=== PATIENT | male | born 1955 | race Caucasian/White ===

== ENCOUNTER 2016-06-21 15:06 | Inpatient (IN) | payer OTHER ==
[~2016-06-21] VITALS: Ht 175.3 cm; Wt 69.4 kg
[~2016-06-21 15:06] MED LIST: ANTIBIOTIC O500 U/GM TP; CIPROFLOXACIN500 M1 PO; COLACE100 M1 PO; DEPAKOTE SPRIN125 MG PO; DIVALPROEX SOD250 M1 PO; DIVALPROEX SOD500 M1 PO; KENALOG 0.1%15 GM TP; KLONOPIN1 MG PO; LAMICTAL200 MG PO; LEVOTHYROXINE0.05 M3 PO; MAPAP325 MG PO; MULTIVITAMIN PO; NEURONTIN400 MG PO; POLYETHYLENE GL; SEROQUEL200 MG PO; SEROQUEL400 MG PO; TRAZADONE HYDR100 MG PO; [UNRECOGNIZED DRUG - CODE] PO
[2016-06-21 15:35] VITALS: BP 117/74
--- NOTE | 2016-06-21 15:40 | NUR ---
ER MD DR. GRAY NOTIFIED OF PT TEMPERATURE/ BLOOD SUGAR; WARM BLANKETS PROVIDED FOR COMFORT; WILL CONTINUE TO MONITOR.
--- NOTE | 2016-06-21 16:54 | NUR ---
PT BIB CAREGIVERS FROM [facility] C/O COUGH X 5 DAYS. PT IS MENTALLY CHALLENGE. CAREGIVER DENIES N/V/D; SKIN IS WARM/DRY; HAS MULTIPLE BRUISES ON LEFT PLUNKETT, BLANCHABLE REDNESS ON RIGHT HIP,RIGHT BACK AND LEFT AND RIGHT BUTTOCKS.PT IS HYPOTHERMIC WITH TEMP OF 91 F.HR EVEN AND REGULAR;CAREGIVER DENIES ANY FEVER, CP, SOB, AT THIS TIME;PROVIDED MULTIPLE BLANKET.PATIENT POSITIONED FOR COMFORT; HOB ELEVATED; BEDRAILS UP X2; BED DOWN. ER MD MADE AWARE OF PT STATUS.
[2016-06-21] MEDS ORDERED: NACL 0.9% 1,000 ML IV ONE (17:10)
--- NOTE | 2016-06-21 17:38 | NUR ---
TALKED TO DR GRAY. OKAY TO DO IN AND OUT FOR URINE COLLECTION.
[2016-06-21] MEDS ORDERED: VANCOMYCIN 1,000 MG in DEXTROSE 5% 250 ML IV ONE (17:40)
[2016-06-21] MEDS ORDERED: LEVOFLOXACIN 750 MG/D5W PREMIX 150 ML IV ONE (17:40)
[2016-06-21] MEDS ORDERED: PIPERACILLIN/TAZOBACTAM 3.375 GM in DEXTROSE 5% 50 ML IV ONE (17:40)
--- NOTE | 2016-06-21 17:43 | NUR ---
IN AND OUT DONE.PT TOLERATED WELL. NO BLOOD NOTED.
[2016-06-21] MEDS ORDERED: PIPERACILLIN/TAZOBACTAM 3.375 GM VIAL IV ONE (17:54)
--- NOTE | 2016-06-21 18:39 | NUR ---
PT AA.NO ACUTE DISTRESS NOTED AT THIS TIME.WILL CONTINUE TO MONITOR PT
[2016-06-21] MEDS ORDERED: NACL 0.9% 1,000 ML IV SCH (18:53)
[2016-06-21] MEDS ORDERED: ONDANSETRON 4 MG/2 ML VIAL IVP PRN (18:55)
[2016-06-21] MEDS ORDERED: LORazepam 2 MG/ML VIAL IVP PRN (18:55)
[2016-06-21] MEDS ORDERED: ALBUTEROL 0.083% 2.5 MG/3 ML NEBU IH PRN (18:55)
--- NOTE | 2016-06-21 19:18 | NUR ---
CALL PLACED TO TELE TO GIVE REPORT WILL CALL US BACK
--- NOTE | 2016-06-21 19:27 | NUR ---
REPORT GIVEN TO LINCOLN WILCOX
--- NOTE | 2016-06-21 19:40 | NUR ---
PT ADMITTED TO TELE WITH ADMIT DX PNA AND HYPOTHERMIA PT VITAL SIGNS CURRENTLY STABLE TEMP IS NORMAL PT WAS GIVEN A WARM BLANKET AND WAS TRANSFERRED TO A WOUND CARE BED MATTRESS.PT WILL BE TURNED AND REPOSITIONED TO PREVENT PRESSURE SORES TO RT AND LT HIP AND ALSO BUTTOCKS PT HAS SOME DRY SCABS TO BOTH LOWER EXTREMITIES AND FEET NOTED.FALL PRECAUTIONS AND SEIZURE PREC IMPLEMENTED.EDUCATED ON HOW TO USE THE CALL LIGHT PT IS MENTALLY CHALLENGED AND DOESN'T COMPREHEND.PATIENT CAME WITHOUT FAMILY OR CAREGIVER TO THE FLOOR SO THE ONLY MEDICAL HISTORY OBTAINED IS THAT THRU THE MEDICAL RECORD AT THIS TIME WILL TRY TO CONTACT THE CAREGIVER LEE WILL LEAVE A MESSAGE IN CASE HE DOESN'T ANSWER.ORDERS WILL BE REVIEWED AND CARRIED OUT.
--- NOTE | 2016-06-21 19:45 | NUR ---
BERNIE CATHETER WAS INSERTED AND PATIENT TOLERATED PROCEDURE WELL,THEN CONNECTED TO URINE BAG WILL MONITOR URINE OUTPUT.
[2016-06-21 20:00] VITALS: BP 118/85
[2016-06-21] MEDS: PIPERACILLIN/TAZOBACTAM 3.375 GM in DEXTROSE 5% 50 ML IV SCH (21:00)
[2016-06-21] MEDS ORDERED: VANCOMYCIN 1,000 MG VIAL ONE (21:30)
--- NOTE | 2016-06-21 22:15 | NUR ---
PT TURNED AND REPOSITIONED OFFLOADING DONE, BY BOTH KARLA VENCES AND KARLA BARNETT.
--- NOTE | 2016-06-21 22:47 | NUR ---
Patient's Plan of Care was discussed and reviewed with STRUCTURAL WORKER: JERI MOSES
--- NOTE | 2016-06-21 22:48 | NUR ---
LINCOLN ALEGRIA ATTEMPTED TO CALL LEE LEAL HIM EARLIER TO OBTAIN MEDICAL INFORMATION FOR THE PATIENT AND SHE LEFT A MESSAGE EARLIER.I CALLED LEE AGAIN FOR A SECOND TIME TO TRY TO OBTAIN MEDICAL INFORMATION ON THE PATIENT BUT STILL THERES IS NO ANSWER.SO I LEFT A MESSAGE IN THE ANSWERING MACHINE.
--- NOTE | 2016-06-22 00:38 | NUR ---
PT AWAKE ON AND OFF A BIT RESTLES IN BED RESTING IN WOUND CARE BED MATTRESS,CONTINUES TO BE TURNED AND REPOSITIONED OFFLOADING DONE TO PREVENT PRESSURE TO RT AND LT HIP AND ALSO BUTTOCKS.PT CONTINUES TO HAVE THE CONDOM CATHETER IN PLACE,NO PAIN OR DISCOMFORT NOTED NO SEIZURE ACTIVITY NOTED SIDERAILS CONTINUE TO BE PADDED.CALL LIGHT WITHIN REACH WILL CONTINUE TO MONITOR.
[2016-06-22 00:57] VITALS: BP 115/85
--- NOTE | 2016-06-22 00:57 | NUR ---
EXTRA BLANKETS GIVEN TO THE PATIENT NEEDS MET. BED ALARM ON.
--- NOTE | 2016-06-22 01:41 | NUR ---
UNABLE TO COLLECT SPUTUM C/S PT ISN'T COUGHING OR PRODUCING PHLEGM AT THIS TIME.
--- NOTE | 2016-06-22 02:37 | NUR ---
PT IS SLEEPING PT WAS TURNED AND REPOSITIONED BY KARLA VENCES.BED ALARM ON WILL CONTINUE TO MONITOR.
[2016-06-22] MEDS ORDERED: PIPERACILLIN/TAZOBACTAM 3.375 GM VIAL IV ONE (03:52)
[2016-06-22] MEDS: PIPERACILLIN/TAZOBACTAM 3.375 GM in DEXTROSE 5% 50 ML IV SCH (04:05)
[2016-06-22 04:40] VITALS: BP 118/73
--- NOTE | 2016-06-22 04:45 | NUR ---
PT STABLE TURNED AND REPOSITIONED FOR COMFORT BY KARLA VENCES AND KARLA BARNETT.
--- NOTE | 2016-06-22 06:15 | NUR ---
PT AWAKE STABLE NO RESP DISTRESS NO SEIZURE ACTIVITY NOTED.
--- NOTE | 2016-06-22 07:26 | NUR ---
PT IS CURRETLY AWAKE HAVING A CHEST XRAY REPORT ENDORSED TO LINCOLN CNAALES SHE WILL RESUME CARE OF THE PATIENT.
--- NOTE | 2016-06-22 07:26 | NUR ---
RECEIVED REPORT FROM NIGHT NURSE, PT IS AAOX2, IV TO RIGHT AC 20G SALINE LOCK PATENT AND INTACT, O2 3L VIA NC , NO S/S OF RESPIRATORY DISTRESS OR COUGH NOTED,SKIN INTACT, BLE SCARS, REORIENTED PT TO ENVIRONMENT, REVIEWED PLAN OF CARE WITH PT, REINFORCEMENT NEEDED , INITIAL ASSESSMENT COMPLETED, ALL SAFETY/FALL PRECAUTIONS MET, ALL NEEDS MET, CALL LIGHT WITHIN REACH, WILL CONTINUE TO MONITOR.
--- NOTE | 2016-06-22 07:26 | NUR ---
ENDORSED TO LINCOLN CANALES TO FOLLOW UP WITH CASHIER ASSOCIATE OR CAREGIVER ON THE PNA AND FLU VACCINES.
[2016-06-22 08:00] VITALS: BP 119/79
--- NOTE | 2016-06-22 08:14 | NUR ---
PATIENT HAS BEEN SCREENED AND CATEGORIZED HIGH NUTRITION RISK. PATIENT WILL BE SEEN WITHIN 1-2 DAYS OF ADMISSION. 06/22/16-06/23/[address]
[2016-06-22] MEDS: ENOXAPARIN 30 MG/0.3 ML SYR SUBQ SCH (09:34)
--- NOTE | 2016-06-22 09:34 | NUR ---
DUE MEDICATION GIVEN, PT TOLERATED WELL. ALL NEEDS MET, CALL LIGHT WITHIN REACH, WILL CONTINUE TO MONITOR.
--- NOTE | 2016-06-22 10:35 | NUR ---
CHECKED IN ON PT, PT CURRENTLY SLEEPING, NO S/S OF RESPIRATORY DISTRESS NOTE, CALL LIGHT WITHIN REACH, WILL CONTINUE TO MONITOR.
[2016-06-22 12:00] VITALS: BP 122/70
[2016-06-22] MEDS: PIPER/TAZO 3.375GM/D5W PREMIX 50 ML IV SCH ×2 (13:04→21:07)
--- NOTE | 2016-06-22 13:06 | NUR ---
DUE MEDICATIONS GIVEN, PT CURRENTLY RESTING IN BED. NO S/S OF RESPIRATORY DISTRESS OR DISCOMFORT NOTED, CALL LIGHT WITHIN REACH. WILL CONTINUE TO MONITOR.
--- NOTE | 2016-06-22 13:09 | NUR ---
06/22/15 RD INITIAL ASSESSMENT COMPLETED PLEASE REFER TO NUTRITION ASSESSMENT UNDER CARE ACTIVITY FOR ESTIMATED NUTRITIONAL NEEDS. RD RECOMMENDATIONS: 1. CONTINUE REGULAR DIET MEDICALLY APPROPRIATE. --NOTE PT WITH INCREASED KCAL AND PROTEIN NEEDS D/T DX OF SEPSIS. 2. RD WILL F/U 3-5 DAYS; MODERATE RISK. ARLENE GOODRICH, RD
[2016-06-22] MEDS ORDERED: VANCOMYCIN PER PHARMACY MC PRN (13:55)
--- NOTE | 2016-06-22 14:10 | NUR ---
CHECKED IN ON PT, PT CURRENTLY AWAKE, CAREGIVER AT BEDSIDE. REVIEWED PLAN OF CARE WITH CAREGIVER HE VERBALIZED UNDERSTANDING.
[2016-06-22] MEDS: VANCOMYCIN 1,250 MG in DEXTROSE 5% 250 ML IV SCH (15:30)
--- NOTE | 2016-06-22 15:35 | NUR ---
DUE MEDICATION GIVEN. PT CURRENTLY AWAKE, NO S/S OF PAIN OR RESPIRATORY DISTRESS NOTED, CALL LIGHT WITHIN REACH, WILL CONTINUE TO MONITOR.
[2016-06-22 16:00] VITALS: BP 127/68
[2016-06-22] MEDS: GABAPENTIN 100 MG CAP PO SCH (16:49)
[2016-06-22] MEDS: DIVALPROEX SPRINKLES 125 MG CAPDR PO SCH (16:53)
--- NOTE | 2016-06-22 16:53 | NUR ---
DUE MEDICATIONS GIVEN WITH APPLE SAUCE. PT TOLERATED WELL. WILL CONTINUE TO MONITOR.
--- NOTE | 2016-06-22 17:28 | NUR ---
CHECKED IN ON PT, PT CURRENTLY SLEEPING. NO S/S OF RESPIRATORY DISTRESS NOTED, ALL NEEDS MET. CALL LIGHT WITHIN REACH. WILL CONTINUE TO MONITOR.
[2016-06-22] MEDS ORDERED: INFLUENZA VIRUS VACCINE QUAD 0.5 ML SYR IMVAC SCH (18:50)
--- NOTE | 2016-06-22 19:10 | NUR ---
ENDORSED PLAN OF CARE TO NIGHT NURSE, PT IN STABLE CONDITION.
--- NOTE | 2016-06-22 19:15 | NUR ---
RECEIVED REPORT FROM DAY NURSEMARIO. PATIENT RESTING IN BED. NO RESPIRATORY DISTRESS, SOB, OR DISCOMFORT. INITIAL ASSESSMENT AND BODY CHECK DONE. PATIENT IS AOX1, HX MR, REDNESS NOTED TO SACRAL AREA AND BL HIPS. IV ACCESS TO LEFT FOREARM 22G, PATENT. PATIENT ON O2 3L NC, TOLERATING WELL. DISCUSSED PLAN OF CARE, MEDICATION REGIMENT, AND PAIN MANAGEMENT WITH PATIENT. PLACED PATIENT ON SAFETY/FALL/PRESSURE ULCER/SEIZURE PRECAUTIONS. CALL LIGHT LEFT WITHIN REACH, WILL CONTINUE TO MONITOR.
[2016-06-22 20:00] VITALS: BP 123/77
[2016-06-22] MEDS: DOCUSATE SODIUM 100 MG GELCAP PO SCH (21:00)
[2016-06-22] MEDS ORDERED: BACITRACIN OINT 15000 UNITS/30 GM TUBE TP SCH (21:00)
[2016-06-22] MEDS: MULTIVITAMIN/MINERALS 1 TAB PO SCH (21:04)
[2016-06-22] MEDS: QUEtiapine FUMARATE 100 MG TAB PO SCH (21:05)
--- NOTE | 2016-06-22 21:05 | NUR ---
PATIENT'S MEDICATION: COLACE HELD AT THIS TIME. PATIENT HAS POSSIBLY DYSPHAGIA AND AWAITING SWALLOW EVALUATION. ABLE TO CRUSH MEDS AND MIX WITH APPLESAUCE. COLACE IS LIQUID CAPSULE AND UNABLE TO CRUSH.
--- NOTE | 2016-06-22 22:05 | NUR ---
PATIENT IN BED, SLEEPING. NO RESPIRATORY DISTRESS, SOB, OR DISCOMFORT. CALL LIGHT LEFT WITHIN REACH, WILL CONTINUE TO MONITOR.
[2016-06-23] VITALS: BP 116/65
--- NOTE | 2016-06-23 00:49 | NUR ---
PATIENT ASLEEP. NO RESPIRATORY DISTRESS, SOB, OR DISCOMFORT. CALL LIGHT LEFT WITHIN REACH, WILL CONTINUE TO MONITOR.
[2016-06-23] MEDS ORDERED: HYDRAGUARD CREAM TP SCH ×2 (01:00→13:00)
--- NOTE | 2016-06-23 03:11 | NUR ---
PATIENT SLEEPING. NO RESPIRATORY DISTRESS, SOB, OR DISCOMFORT. CALL LIGHT LEFT WITHIN REACH, WILL CONTINUE TO MONITOR.
[2016-06-23 04:00] VITALS: BP 120/72
[2016-06-23] MEDS: VANCOMYCIN 1,250 MG in DEXTROSE 5% 250 ML IV SCH ×2 (04:17→15:35)
[2016-06-23] MEDS: PIPER/TAZO 3.375GM/D5W PREMIX 50 ML IV SCH ×3 (05:44→20:57)
--- NOTE | 2016-06-23 06:03 | NUR ---
PATIENT IN BED, ASLEEP. NO RESPIRATORY DISTRESS, SOB, OR DISCOMFORT. CALL LIGHT LEFT WITHIN REACH, WILL CONTINUE TO MONITOR.
[2016-06-23] MEDS: LEVOTHYROXINE 0.05 MG TAB PO SCH (06:34)
--- NOTE | 2016-06-23 07:18 | NUR ---
REPORT GIVEN TO DAY NURSE, SUNG. PATIENT RESTING IN BED, STABLE. NO RESPIRATORY DISTRESS, SOB, OR DISCOMFORT. ALL NEEDS ATTENDED TO DURING SHIFT, CALL LIGHT LEFT WITHIN REACH.
--- NOTE | 2016-06-23 07:19 | NUR ---
RECEIVED REPORT FROM WASHING MACHINE LOADER RN. PT IS SLEEPING, A/O X 1. LEFT WRIST TKO, INTACT AND PATENT. BEDBOUND. BILATERAL HIP AND SACRAL REDNESS, PT ON WOUND BED. O2 3L NC. NO S/S OF ACUTE CARDIAC/RESPIRATORY DISTRESS. CONDOM CATHETER DRAINING TO GRAVITY. SAFETY MEASURES IN PLACE, SEIZURE PRECAUTIONS IN PLACE, CALL LIGHT WITHIN REACH. WILL CONTINUE PLAN OF CARE AND CONTINUE TO MONITOR.
[2016-06-23 08:00] VITALS: BP 120/89
[2016-06-23] MEDS: DIVALPROEX SPRINKLES 125 MG CAPDR PO SCH ×4 (09:00→16:36)
[2016-06-23] MEDS: DOCUSATE SODIUM 100 MG GELCAP PO SCH (09:07)
[2016-06-23] MEDS: POLYETHYLENE GLYCOL 17 GM/PKT PO SCH (09:07)
[2016-06-23] MEDS: MULTIVITAMIN/MINERALS 1 TAB PO SCH (09:07)
[2016-06-23] MEDS: ENOXAPARIN 30 MG/0.3 ML SYR SUBQ SCH (09:07)
[2016-06-23] MEDS: clonazePAM 0.5 MG TAB PO SCH (09:10)
[2016-06-23] MEDS: GABAPENTIN 100 MG CAP PO SCH ×2 (09:11→16:36)
--- NOTE | 2016-06-23 09:30 | NUR ---
PT AWAKE. PT REFUSED CRUSHED AM MEDS WITH APPLESAUCE. NO S/S OF ACUTE DISTRESS OR DISCOMFORT. CALL LIGHT WITHIN REACH. WILL CONTINUE TO MONITOR.
[2016-06-23 12:00] VITALS: BP 104/59
--- NOTE | 2016-06-23 13:00 | NUR ---
PT IS SLEEPING. NO S/S OF ACUTE DISTRESS OR DISCOMFORT. CALL LIGHT WITHIN REACH. REPOSITIONED PT. OFF LOAD BILATERAL HIPS, HEALS, AND ANKLES. PT HAS A NON-PRODUCTIVE COUGH, UNABLE TO COLLECT SPUTUM AT THIS TIME. CALL LIGHT WITHIN REACH, WILL CONTINUE TO MONITOR.
[2016-06-23] MEDS: HYDRAGUARD CREAM TP SCH (13:03)
--- NOTE | 2016-06-23 15:09 | NUR ---
PT IS SLEEPING. NO S/S OF ACUTE DISTRESS/DISCOMFORT. CALL LIGHT WITHIN REACH. SEIZURES PRECAUTIONS IN PLACE. PT REPOSITIONED. WILL CONTINUE TO MONITOR.
[2016-06-23 16:00] VITALS: BP 123/73
[2016-06-23] MEDS ORDERED: INFLUENZA VIRUS VACCINE QUAD 0.5 ML SYR IMVAC PRN (18:50)
--- NOTE | 2016-06-23 19:07 | NUR ---
ENDORSED REPORT TO CHEMICAL CHECKER RN. PT IS SLEEPING. NO S/S OF ACUTE DISTRESS OR DISCOMFORT. PT IN STABLE CONDITION.
--- NOTE | 2016-06-23 19:23 | NUR ---
RECEIVED REPORT FROM DAYSHIFT RN FOR CONTINUITY OF CARE. PATIENT IS A&OX1. SHIFT ASSESSMENT DONE, VS TAKEN. PATIENT IS STABLE AT THIS TIME. NO S/S OF RESPIRATORY DISTRESS NOTED ON 3L O2 VIA NC. INTERMITTENT COUGH NOTED. NO S/S OF PAIN NOTED, RESTING COMFORTABLY. IV TO LT WRIST 22 GAUGE PATENT AND FLUSHED. CONDOM CATHETER IN PLACE. PT HAS REDNESS TO BILATERAL SIDE OF HIPS, SACRAL REDNESS, AND REDNESS TO BILATERAL ANKLES. SAFETY/ FALL/ SEIZURE PRECAUTIONS ENFORCED. PATIENT HAS MITTENS IN PLACE TO PREVENT PULLING OUT IV. WILL CONTINUE TO MONITOR.
[2016-06-23 20:00] VITALS: BP 114/68
--- NOTE | 2016-06-23 20:57 | NUR ---
DUE IVPB MEDICATIONS ADMINISTERED. CRUSHED DUE MEDICATIONS, PT REFUSED SHOOK HEAD "NO" WHEN ASKED IF HE WANTED TO TAKE MEDICATIONS. WILL CONTINUE TO MONITOR.
[2016-06-23] MEDS: QUEtiapine FUMARATE 100 MG TAB PO SCH ×2 (21:00→21:07)
[2016-06-23] MEDS ORDERED: QUEtiapine FUMARATE 100 MG TAB ONE (21:07)
--- NOTE | 2016-06-23 22:36 | NUR ---
PT IS AWAKE, NO S/S OF DISTRESS OR DISCOMFORT NOTED. REPOSITIONED AND CLEANED PT UP. WILL CONTINUE TO MONITOR.
[2016-06-24] VITALS: BP 104/61
--- NOTE | 2016-06-24 00:05 | NUR ---
VS TAKEN, STABLE. PT IS AWAKE. NO S/S OF RESPIRATORY DISTRESS NOTED ON 3L NC.
[2016-06-24] MEDS: HYDRAGUARD CREAM TP SCH ×2 (01:00→13:42)
--- NOTE | 2016-06-24 02:02 | NUR ---
PT IS AWAKE, REPLIED "YES" WHEN ASKED IF HE WAS OK. NO S/S OF DISTRESS OR DISCOMFORT NOTED.
[2016-06-24] MEDS: VANCOMYCIN 1,250 MG in DEXTROSE 5% 250 ML IV SCH ×2 (03:41→15:49)
[2016-06-24 04:00] VITALS: BP 106/58
--- NOTE | 2016-06-24 04:20 | NUR ---
VS TAKEN, STABLE. REPOSITIONED PATIENT AND PROVIDED AM CARE. WILL CONTINUE TO MONITOR.
[2016-06-24] MEDS: PIPER/TAZO 3.375GM/D5W PREMIX 50 ML IV SCH ×2 (04:21→13:43)
[2016-06-24] MEDS: LEVOTHYROXINE 0.05 MG TAB PO SCH (06:25)
--- NOTE | 2016-06-24 06:25 | NUR ---
DUE MEDICATIONS ADMINISTERED, PT TOLERATED WELL.
--- NOTE | 2016-06-24 07:20 | NUR ---
ENDORSED PATIENT TO RYANNE RN FOR CONTINUITY OF CARE, PATIENT IS STABLE.
--- NOTE | 2016-06-24 07:30 | NUR ---
RECEIVED ON BED AAOX1 ONLY, HX OF MENTAL DELAY. NO SOB NOTED. NO SIGNS OF PAIN AT THIS TIME. IV TO LT WRIST PATENT AND INTACT. CHEST, DIMINISHED AIR ENTRY TO THE BASES. ON 02 AT 3LPM VIA NASAL CANNULA. ABDOMEN SOFT, BOWEL SOUNDS PRESENT. REDNESS TO BILATERAL HIPS AND SACRAL AREA NOTED. WILL REPOSITION PT EVERY 2 HRS. INSTRUCTED PT TO CALL FOR ASSISTANCE, CALL LIGHT WITHIN REACH, BED ALARM ON AND ON LOW POSITION. PT VERBALIZED PARTIAL UNDERSTANDING.
[2016-06-24 08:00] VITALS: BP 101/64
[2016-06-24] MEDS: MULTIVITAMIN/MINERALS 1 TAB PO SCH (09:00)
[2016-06-24] MEDS: DOCUSATE SODIUM 100 MG GELCAP PO SCH (09:00)
[2016-06-24] MEDS: GABAPENTIN 100 MG CAP PO SCH ×3 (09:00→15:50)
[2016-06-24] MEDS: ENOXAPARIN 30 MG/0.3 ML SYR SUBQ SCH (09:26)
--- NOTE | 2016-06-24 09:58 | NUR ---
WOUND CARE EVALUATION NOTES: REASON FOR EVALUATION: SACRAL REDNESS COMPLETE SKIN ASSESSMENT DONE ON THIS 60 Y/O MALE PATIENT FROM [facility] TO [facility], WITH INITIAL DIAGNOSIS OF PNEUMONIA AND HYPOTHERMIA. PAST MEDICAL HISTORY INCLUDE SEIZURE AND MENTAL RETARDATION. ALL ABOVE INFORMATION WAS OBTAINED FROM THE ADMISSION H&P. LABS ARE WBC 5.8, H/H 12.3/36.8, GLUCOSE 88, ALBUMIN 2.3, PT/INR 10.4/1.1 AND PTT 34.4. CURRENT MEDS INCLUDE KLONOPIN, SEROQUEL, MULTIVITAMINS, VANCOMYCIN, ZOSYN, ENOXAPARIN AND ATIVAN. PATIENT IS AWAKE, NO VERBAL, ABLE TO ANSWER YES BY NODDING HIS HEAD. ABLE TO FOLLOW SIMPLE COMMAND. ON 02 PER NASAL CANNULA. ON BILATERAL MITTENS. SKIN WARM TO TOUCH WNL, THICKENED YELLOW TOENAILS, NO EDEMA, FEW HAIR GROWTH AND +3 BILATERAL PEDAL PULSES. URINE AND BOWEL INCONTINENT. ABLE TO TURN SELF WITH ASSISTANCE. INITIAL PLAN OF CARE AND PRESSURE PREVENTIVE MEASURES DISCUSSED, UNABLE TO VERBALIZE UNDERSTANDING. WILL REINFORCE TEACHING. INTEGUMENTARY: SACRALCOCCYX TO PERIAREA - RED AND MOIST DUE TO URINE AND BOWEL INCONTINENCE LEFT LATERAL FOOT - MULTIPLE BLANCHABLE REDNESS RIGHT LATERAL FOOT - MULTIPLE BLANCHABLE REDNESS. BLE - MULTIPLE ABRASIONS - BROWN SCABS RIGHT HIP - WITH SCARRING LEFT HIP - ST II OVER SCARRING - 100% RICO SCAB LEFT MEDIAL METATARSAL HEAD - ABRASION - 100% BROWN RED SCAB RECOMMENDATIONS: -SACRALCOCCYX TO PERIAREA: CLEANSE WITH MILD SOAP AND WATER, PAT DRY, APPLY HYDRAGUARD BIDWC AND PRN WITH SOILING. LEAVE OPEN TO AIR -PAINT R/L HIPS AND R/L FEET WITH SKIN PREP WIPES BIDWC AND LEAVE OPEN TO AIR -TURN AND REPOSITION PATIENT Q2H -ASSESS AND MONITOR SKIN CONDITION DURING POSITION CHANGE, PLEASE PAY PARTICULAR ATTENTION TO SACRALCOCCYX, ELBOWS AND HEELS -OFFLOAD BILATERAL HEELS BY PLACING PILLOWS UNDER CALVES AT ALL TIMES, UNLESS OTHERWISE CONTRAINDICATED -PRESSURE REDISTRIBUTION SURFACE THERAPY -KEEP SKIN CLEAN AND DRY AT ALL TIMES. RECOMMENDATIONS DISCUSSED WITH PRIMARY RN. WILL FOLLOW UP PATIENT Q7 DAYS AND PRN. PLEASE CONTACT [facility] FOR ANY CONCERNS, QUESTIONS AND CHANGES IN WOUND CONDITION.
[2016-06-24] MEDS: ACETAMINOPHEN 325 MG TAB PO PRN ×2 (10:52→15:51)
--- NOTE | 2016-06-24 10:52 | NUR ---
CM NOTE PER [facility] PH# [phone], REVIEWS SHOULD ONLY GO TO [facility] AND NOT TO [facility]. SENT INITIAL REVIEW TO [facility] FAX# [phone] PH# [phone]
--- NOTE | 2016-06-24 11:00 | NUR ---
SWALLOW EVALUATION ON GOING AT THE BEDSIDE.
--- NOTE | 2016-06-24 11:23 | NUR ---
PASTRY ASSISTANT note (bedside swallow evaluation completed) [id number]. Bedside swallow evaluation completed, please see report for details. PASTRY ASSISTANT provided pt with repeated educations regarding purpose of evaluation. Pt highly resistant to PO trials for evaluation, but with maximal encouragement by PASTRY ASSISTANT and RN (Jaci), pt participated minimally with PO intakes. Pt demonstrated discoordinated/delayed oral-motor movements and swallow responses. Recommend: 1) pureed textures 2) nectar-thick liquids 3) strict aspiration precautions (including pt must be fully awake/alert/upright for any PO intakes, alternate small/slow bites and sips) 4) 100% feeding assistance 5) PASTRY ASSISTANT to f/u for dysphagia/diet tolerance, as pt willing/able to participate safely, to continue to assess pt's ability to tolerate less-restrictive textures, as appropriate G-codes: [id number] [facility] NOMS level 4: Swallowing is safe, but usually requires moderate cues to use compensatory strategies, and/or the individual has moderate diet texture restrictions and/or still requires tube feeding and/or oral supplements. PVE: PASTRY ASSISTANT d/w RN (Jaci) following evaluation completion regarding recommendations and rationale for same.
[2016-06-24] MEDS ORDERED: HYDRAGUARD CREAM TP PRN (11:50)
[2016-06-24 12:00] VITALS: BP 110/54
--- NOTE | 2016-06-24 12:42 | NUR ---
SS NOTE: I RECEIVED A CALL BACK FROM JENISE HUGO, PT'S [facility] SUPERVISOR ELECTRIC MOTOR TESTING. SHE STATED THAT THEY HAVE A CONTACT FOR PT'S MOM, [facility] ([phone]) BUT THE CONTACT INFORMATION HAS NOT BEEN UPDATED SINCE 1990. SHE ALSO STATED THAT THEY CAN PROVIDE CONSENT FOR ROUTINE PROCEDURES THROUGH THEIR HEALTHCARE TEAM BUT IF A PROCEDURE/SURGERY IS EMERGENT, THEN TWO PHYSICIANS CAN PROVIDE CONSENT FOR PT.
[2016-06-24] MEDS ORDERED: HYDRAGUARD CREAM TP SCH (13:00)
[2016-06-24] MEDS: DIVALPROEX SPRINKLES 125 MG CAPDR PO SCH ×2 (13:00→15:50)
--- NOTE | 2016-06-24 15:43 | NUR ---
FNS CONSULT RECEIVED FOR [facility]YN[facility] [address] ALREADY FOLLOWING PATIENT AND WILL F/U WITH PATIENT 06/25/16-06/27/16. PLEASE REFER TO RD INITIAL ASSESSMENT 06/22/[address]OMMENDATIONS, AND ESTIMATED NUTRITIONAL NEEDS. ABRAHAN HERNANDEZ, RD
[2016-06-24 16:00] VITALS: BP 140/66
--- NOTE | 2016-06-24 16:34 | NUR ---
CM NOTE PER [facility] # [phone], REVIEWS SHOULD GO TO [facility] AND SEND ONLY TO ALLIED PHYSICIANS FOR ANY DISCHARGE NEEDS. INITIAL REVIEW SENT TO [facility] FAX# [phone] Danelle CATERINA [phone] Addendum: 06/24/16 at 1638 by America Christian DOCUMENTED ON WRONG PATIENT.
[2016-06-24] MEDS ORDERED: PNEUMOCOCCAL VACCINE 23 MCG/0.5 ML VIAL IMVAC SCH (16:55)
--- NOTE | 2016-06-24 17:00 | NUR ---
DISCHARGE PHOTOS TAKEN AND DOCUMENTED.
[2016-06-24] MEDS ORDERED: LEVAQUIN750 MG PO (17:15)
--- NOTE | 2016-06-24 18:15 | NUR ---
DISCHARGE INSTRUCTIONS AND PRESCRIPTIONS GIVEN TO PT'S COMBAT RIFLE CREWMEMBER LEE FROM BOARD AND [facility] WHICH VERBALIZED FULL UNDERSTANDING OF THE INSTRUCTIONS AND THE NEED TO FOLLOW UP WITH PCP DR. ARRIAGA WITHIN 7 DAYS. ARM BANDS AND IV REMOVED, CANNULA TIP INTACT.
--- NOTE | 2016-06-24 18:45 | NUR ---
OPT WHEELED OUT IN STABLE CONDITION. D/C TO BOARD AND CARE., NO SOB NOTED. NO COMPLAINTS MADE.
--- NOTE | 2016-06-26 12:43 | NUR ---
ENTERPRISE APPLICATIONS MANAGER DISCHARGE SUMMARY REPORT S: Pt was provided with bedside swallow evaluation on 06/24/2016. O/A: ENTERPRISE APPLICATIONS MANAGER provided pt with repeated educations regarding purpose of evaluation. Pt highly resistant to PO trials for evaluation, but with maximal encouragement by ENTERPRISE APPLICATIONS MANAGER and RN (Jaci), pt participated minimally with PO intakes. Pt demonstrated discoordinated/delayed oral-motor movements and swallow responses. Per bedside swallow evaluation, pt was recommended for pureed textures, nectar-thick liquids, strict aspiration precautions (including pt must be fully awake/alert/upright for any PO intakes, alternate small/slow bites and sips), 100% feeding assistance, dysphagia therapy. G-codes: [id number] - pt was discharged back to board and care prior to dysphagia therapy being provided [facility] NOMS level 4: Swallowing is safe, but usually requires moderate cues to use compensatory strategies, and/or the individual has moderate diet texture restrictions and/or still requires tube feeding and/or oral supplements. P: Pt was discharged back to board and care facility on 06/24/2016. B&C ENTERPRISE APPLICATIONS MANAGER to f/u for dysphagia/diet tolerance, as appropriate.
== END 2016-06-24 18:45 | DRG 137 ==
LOC: MED 15:06 → MTU 19:03
PROVIDERS: ADMIT Hospitalist; ATTEND Hospitalist
DX: J69.0 Pneumonitis due to inhalation of food and vomit (principal); E03.9 Hypothyroidism, unspecified; G40.909 Epilepsy, unspecified, not intractable, without status epilepticus; R09.02 Hypoxemia; F79 Unspecified intellectual disabilities

== ENCOUNTER 2017-06-16 08:15 | Inpatient (IN) | payer OTHER ==
[~2017-06-16] VITALS: Ht 167.6 cm; Wt 70.3 kg
[~2017-06-16 08:15] MED LIST changes: +ACET-7568 PO; -ANTIBIOTIC O500 U/GM TP; +BACI-105 TP; -CIPROFLOXACIN500 M1 PO; +CLON1TAB PO; -COLACE100 M1 PO; -DEPAKOTE SPRIN125 MG PO; +DEPSPR125 PO; -DIVALPROEX SOD250 M1 PO; -DIVALPROEX SOD500 M1 PO; +DOCU-299 PO; +GABA400C PO; -KENALOG 0.1%15 GM TP; -KLONOPIN1 MG PO; +LAM200 PO; -LAMICTAL200 MG PO; +LEVO0.0523 PO; +LEVO750T2 PO; -LEVOTHYROXINE0.05 M3 PO; -MAPAP325 MG PO; +MULT-1184 PO; -MULTIVITAMIN PO; -NEURONTIN400 MG PO; -POLYETHYLENE GL; +QUET200T PO; +QUET400T PO; -SEROQUEL200 MG PO; -SEROQUEL400 MG PO; +TRAZ-289 PO; -TRAZADONE HYDR100 MG PO; +[UNRECOGNIZED DRUG - CODE]; -[UNRECOGNIZED DRUG - CODE] PO
[2017-06-16] MEDS ORDERED: NACL 0.9% 1,000 ML IV ONE ×3 (08:20→11:00)
[2017-06-16 08:28] VITALS: BP 100/43
[2017-06-16] MEDS ORDERED: VANCOMYCIN 1,000 MG in DEXTROSE 5% 250 ML IV ONE (08:30)
[2017-06-16] MEDS ORDERED: PIPERACILLIN/TAZOBACTAM 3.375 GM in DEXTROSE 5% 50 ML IV ONE (08:30)
--- NOTE | 2017-06-16 08:42 | NUR ---
PATIENT BIB EMS FROM [facility] WITH C/O LOW BP THIS MORNING HX; MRCP RX --- . DENIES N/V/D; SKIN IS PINK/WARM/DRY; AAOX4 WITH EVEN AND STEADY GAIT; LUNGS RHONCHI BL; HR EVEN AND REGULAR; PT DENIES ANY FEVER, CP, SOB, OR COUGH AT THIS TIME; PATIENT STATES PAIN OF 0/10 AT THIS TIME; VSS; PATIENT POSITIONED FOR COMFORT; HOB ELEVATED; BEDRAILS UP X2; BED DOWN. ER MD MADE AWARE OF PT STATUS.
[2017-06-16] MEDS ORDERED: PIPERACILLIN/TAZOBACTAM 3.375 GM VIAL IV ONE (08:58)
[2017-06-16] MEDS ORDERED: VANCOMYCIN 1,000 MG VIAL ONE (08:58)
[2017-06-16 09:14] LABS: HEMATOCRIT 35.2 % (36-52); HEMOGLOBIN 11.5 g/dL (12.0-18.0); MEAN CORPUSCULAR HEMOGLOBIN 31 pg (27-31); MEAN CORPUSCULAR HGB CONC 33 g/dL (33-37); MEAN CORPUSCULAR VOLUME 94 fL (80-94); PLATELET COUNT (AUTO) 85 K/uL (140-450); RED BLOOD CELL COUNT(AUTO) 3.74 MIL/uL (4.20-6.10); RED CELL DISTRIBUTION WIDTH 16.5 % (11.6-13.7); WHITE BLOOD COUNT (AUTO) 8.6 K/uL (4.8-10.8)
[2017-06-16 09:29] LABS: LYMPHOCYTES % (MANUAL) 22 % (20-46)
[2017-06-16 09:30] LABS: MONOCYTES % (MANUAL) 14 % (5-12)
--- NOTE | 2017-06-16 09:30 | NUR ---
# 16 FR Adkins catheter inserted utilizing sterile technique. Immediate return of 100 ml dark yellow urine noted. Bedside drainage bag placed below level of bladder. Urine sample collected and sent to lab. Pt tolerated procedure well.
[2017-06-16 09:31] LABS: ANION GAP 11.6 (8-16); CARBON DIOXIDE 32.6 mmol/L (21-32); CREATININE 1.4 mg/dL (0.7-1.3); POTASSIUM 5.2 mmol/L (3.5-5.1)
[2017-06-16 09:33] LABS: PROTHROMBIN TIME 10.9 secs (10.8-13.4)
--- NOTE | 2017-06-16 09:35 | NUR ---
pt laying supine in [facility] hob elevated. iv abx infusing with difficulty; vss at this this time. nad. will continue to monitor.
[2017-06-16 09:37] LABS: TOTAL BILIRUBIN 0.3 mg/dL (0.0-1.0)
[2017-06-16 10:34] LABS: APPEARANCE,URINE TURBID (CLEAR); BILIRUBIN,URINE NEGATIVE (NEGATIVE); BLOOD, URINE 2+ (NEGATIVE); LEUKOCYTE ESTERASE ,URINE 2+ (NEGATIVE); NITRITE, URINE POSITIVE (NEGATIVE); UGLUCOSE NEGATIVE (NEGATIVE)
--- NOTE | 2017-06-16 10:40 | NUR ---
spoke with community youth secretary at [facility], Dr Boo will call back for admit.
[2017-06-16 10:42] LABS: COLOR,URINE ORANGE (YELLOW)
[2017-06-16 10:45] LABS: RBC,URINE 3-10 (FEW) /HPF (0-5); WBC,URINE 16-25 (MOD) /HPF (0-5)
[2017-06-16] MEDS ORDERED: LEVOFLOXACIN 750 MG/D5W PREMIX 150 ML IV ONE (11:00)
--- NOTE | 2017-06-16 11:30 | NUR ---
DR STEWART CALLS BACK, DR Ocasio NOT AVAILABLE AT THIS TIME. CN INFORMED.
--- NOTE | 2017-06-16 11:56 | NUR ---
LAB BY BEDSIDE FOR REDRAW FOR LACTIC ACID. IV ABX INFUSING WITHOUT DIFFICULTLY. NO RESP DISTRESS AT THIS TIME. WILL CONTINUE TO MONITOR.
[2017-06-16] MEDS ORDERED: HYDROcodone/APAP 5/325 MG 1 TAB TAB PO PRN ×2 (12:10)
[2017-06-16] MEDS ORDERED: ONDANSETRON 4 MG/2 ML VIAL IVP PRN (12:10)
[2017-06-16] MEDS ORDERED: ACETAMINOPHEN 325 MG TAB PO PRN (12:10)
[2017-06-16] MEDS ORDERED: VANCOMYCIN PER PHARMACY MC PRN (12:55)
[2017-06-16] MEDS ORDERED: GABAPENTIN 100 MG CAP PO SCH (13:00)
[2017-06-16] MEDS ORDERED: GABAPENTIN 300 MG, GABAPENTIN 100 MG PO SCH ×2 (13:00)
[2017-06-16] MEDS ORDERED: PIPERACILLIN/TAZOBACTAM 2.25 GM in DEXTROSE 5% 50 ML IV SCH (13:00)
--- NOTE | 2017-06-16 13:06 | NUR ---
PT LAYING SUPINE IN RPLANO. NO RESP DISTRESS AT THIS TIME. WILL CONTINUE TO MONITOR.
--- NOTE | 2017-06-16 13:20 | NUR ---
Patient will be admitted to [facility]. Admited to ICU #1. Will go to room icu 1. Belongings list completed. Bedside report to migue STARK.
--- NOTE | 2017-06-16 13:33 | NUR ---
PT REMOVED FROM NRB AND PLACED ON 10L OXYMIZER PT IS NOT SOB AND NOT IN RESPIRATORY DISTRESS AT THIS TIME. SPO2 92%. NURSE ANISHA AWARE OF PT STATUS. WILL CONTINUE TO MONITOR.
--- NOTE | 2017-06-16 13:33 | NUR ---
ADMITTED PT FROM ER BY NIKKI. PT OPENS EYES, UNABLE TO FOLLOW COMMANDS. MUMBLING , UNABLE TO UNDERSTAND PT. BEDSIDE MONITOR SHOWS SR. PT ON 10L/MIN OXYMIZER, NO S/S OF RESPIRATORY DISTRESS NOTED. RHONCHI BILATERALLY NOTED. ABDOMEN SOFT WITH ACTIVE SOUND, PT ABLE TO MOVE ALL HIS EXTREMITIES, PITTING EDEMA+2 AND RASH TO BLE NOTED. MRSA NARES COLLECTED, CALL LIGHT IN REACH, WILL CONTINUE TO MONITOR.
[2017-06-16] MEDS: NACL 0.9% 1,000 ML IV SCH ×2 (13:50→22:08)
--- NOTE | 2017-06-16 14:12 | NUR ---
PT SUCTIONED BY ALEX BREWER AND OBTAINED LARGE AMOUNT OF THICK YELLOW SECRETIONS. PT DID NOT EXPERIENCE ANY ADVERSE REACTIONS.
--- NOTE | 2017-06-16 14:30 | NUR ---
APPLIED SCDS TO PT.
[2017-06-16 15:29] LABS: RED CELL DISTRIBUTION WIDTH 16.5 % (11.6-13.7); WHITE BLOOD COUNT (AUTO) 9.1 K/uL (4.8-10.8)
--- NOTE | 2017-06-16 15:30 | NUR ---
PT LEFT FOR CT, ACCOMPANIED WITH SOCORRO AND RN
[2017-06-16 15:32] LABS: HEMATOCRIT 33.4 % (36-52); HEMOGLOBIN 10.8 g/dL (12.0-18.0); MEAN CORPUSCULAR HEMOGLOBIN 30 pg (27-31); MEAN CORPUSCULAR HGB CONC 32 g/dL (33-37); MEAN CORPUSCULAR VOLUME 93 fL (80-94); PLATELET COUNT (AUTO) 74 K/uL (140-450); RED BLOOD CELL COUNT(AUTO) 3.58 MIL/uL (4.20-6.10)
--- NOTE | 2017-06-16 15:50 | NUR ---
PT BACK TO ICU BED 1
[2017-06-16 16:00] VITALS: BP 106/72
[2017-06-16 16:07] LABS: ALBUMIN 1.8 g/dL (3.4-5.0); POTASSIUM 4.8 mmol/L (3.5-5.1); TOTAL BILIRUBIN 0.3 mg/dL (0.0-1.0)
[2017-06-16 16:21] LABS: D-DIMER 890 ng/ml (0-400)
[2017-06-16 16:30] LABS: LYMPHOCYTES % (MANUAL) 13 % (20-46); METAMYELOCYTES % 2 % (0-0); MONOCYTES % (MANUAL) 11 % (5-12); PROMYELOCYTES % 5 % (0-0)
--- NOTE | 2017-06-16 16:53 | NUR ---
PT NASOTRACHEAL SUCTIONED OBTAINED LARGE AMOUNT OF THICK RICO SECRETIONS. PT DID NOT EXPERIENCE ANY ADVERSE REACTIONS. PT PLACED ON 8L OXYMIZER, SPO2 93% PT IS NOT SOB AND NOT IN RESPIRATORY DISTRESS AT THIS TIME.
[2017-06-16 17:03] LABS: ANION GAP 11.9 (8-16); CARBON DIOXIDE 31.9 mmol/L (21-32)
[2017-06-16 18:00] VITALS: BP 119/71
[2017-06-16] MEDS ORDERED: PIPER/TAZO 2.25GM/D5W PREMIX 50 ML IV SCH (18:00)
[2017-06-16 18:32] LABS: FIBRINOGEN 485 mg/dL (200-400)
--- NOTE | 2017-06-16 18:50 | NUR ---
PT HAD MODERATE AMOUNT OF FORMED STOOL, CLEANED PT.
--- NOTE | 2017-06-16 19:15 | NUR ---
REPORT GIVEN TO CABLE FERRY OPERATOR RN. VITALS STABLE AT THIS TIME.
--- NOTE | 2017-06-16 19:30 | NUR ---
RECEIVED REPORT FROM MORNING RN. VS STABLE AT THIS TIME. PT UNABLE TO MAKE NEEDS KNOWN. AFEBRILE. ON OXIMIZER AT 8L/MIN. NO SIGNS OF DISTRESS NOTED. NO SOB. LUNG SOUNDS COARSE. S1+S2 HEARD. PULSES PALPABLE. SINUS RHYTHM ON MONITOR. PT ON REGULAR DIET. ABDOMEN ROUND, SOFT AND NONDISTENDED. BOWEL SOUNDS ACTIVE IN ALL QUADRANTS. BRANNON CATHETER IN PLACE DRAINING YELLOW AND CLEAR URINE. PT HAS PERIPHERAL IV ACCESS, RIGHT HAND 20G AND LEFT AC 20G. BOTH PERIPHERAL IV ACCESS ARE PATENT AND ASYMPTOMATIC. PT DOES NOT APPEAR TO BE IN ANY PAIN. CALL LIGHT WITHIN REACH. HOB AT 30 DEGREES. ALL SAFETY PRECAUTIONS IN PLACE. WILL CONTINUE TO MONITOR PT.
[2017-06-16 20:00] VITALS: BP 104/60
[2017-06-16] MEDS: DOCUSATE SODIUM 100 MG GELCAP PO SCH (20:25)
[2017-06-16] MEDS: QUEtiapine FUMARATE 100 MG TAB PO SCH (20:25)
[2017-06-16] MEDS: PIPER/TAZO 3.375GM/D5W PREMIX 50 ML IV SCH (21:06)
--- NOTE | 2017-06-16 21:10 | NUR ---
ALL SCHEDULED MEDICATIONS ADMINISTERED. PT TOLERATED WELL. ABLE TO SWALLOW MEDICATION WITH APPLE SAUCE. NO COUGHING NOTED. VS STABLE AT THIS TIME. NO CHANGE IN CONDITION. WILL CONTINUE TO MONITOR PT.
[2017-06-16 22:00] VITALS: BP 111/63
[2017-06-17] VITALS (10 sets, daily range): BP systolic 104–138; BP diastolic 46–81
--- NOTE | 2017-06-17 00:38 | NUR ---
VS STABLE. PT ASLEEP. NO SIGNS OF DISTRESS NOTED. NO CHANGE IN CONDITION. PT DOES NOT APPEAR TO BE IN ANY PAIN. MS STILL RUNNING AT 100ML/HR. CALL LIGHT WITHIN REACH. ALL SAFETY PRECAUTIONS ARE IN PLACE. WILL CONTINUE TO MONITOR PT.
--- NOTE | 2017-06-17 00:45 | NUR ---
PT TURNED AND REPOSITIONED. ORAL CARE PROVIDED. MORNING CARE PROVIDED. PT HAD 2 LARGE BM. TOLERATED BEING TURNED FAIRLY. WILL CONTINUE TO MONITOR PT.
--- NOTE | 2017-06-17 03:10 | NUR ---
NO CHANGE IN CONDITION AT THIS TIME. PT LAYING IN BED AND APPEARS COMFORTABLE. NO GRIMACING OR ANY S/S THAT WOULD SUGGEST PT IS IN PAIN. VS STABLE. BP WNL. WILL CONTINUE TO MONITOR PT.
[2017-06-17] MEDS: PIPER/TAZO 3.375GM/D5W PREMIX 50 ML IV SCH ×3 (05:28→20:47)
--- NOTE | 2017-06-17 06:16 | NUR ---
PT CURRENTLY AWAKE. NO SIGNS OF PAIN NOTED. NO SIGNS OF DISTRESS. ON OXIMIZER. CALL LIGHT WITHIN REACH. ALL SAFETY PRECAUTIONS IN PLACE. WILL CONTINUE TO MONITOR PT.
--- NOTE | 2017-06-17 07:05 | NUR ---
REPORT GIVEN TO MORNING RN FOR CONTINUITY OF CARE. PT IN STABLE CONDITION AT THIS TIME.
--- NOTE | 2017-06-17 07:30 | NUR ---
RECEIVED REPORT FROM COMMERCIAL PROJECT MANAGER RN. PT IS AWAKE, UNABLE TO MAKE NEEDS KNOWN AND DOES NOT FOLLOW COMMANDS. AFEBRILE. FLACC 0. NORMAL SINUS RHYTHM ON MONITOR. S1, S2 HEARD. PT IS ON OXIMIZER AT 5 L/MIN. LUNGS SOUND DIMINISHED. NO SOB OR OTHER DISTRESS NOTED. PERIPHERAL IV G20 TO RIGHT HAND ASYMPTOMATIC, PATENT AND INTACT, RECEIVING NORMAL SALINE AT 100 ML/HR. PERIPHERAL IV G20 TO LEFT ANTECUBITAL SALINE LOCKED, ASYMPTOMATIC, PATENT AND INTACT. ABDOMEN SOFT, NONTENDER, NONDISTENDED W/ ACTIVE BOWEL SOUNDS. BRANNON CATH IN PLACE DRAINING URINE TO GRAVITY DRAINAGE BAG. PT ABLE TO MOVE ALL EXTREMITIES. SKIN IS DRY AND WARM TO TOUCH. HOB 30 DEGREES, BED IN LOW POSITION AND CALL LIGHT WITHIN REACH. WILL CONTINUE TO MONITOR.
[2017-06-17] MEDS: NACL 0.9% 1,000 ML IV SCH (08:08)
--- NOTE | 2017-06-17 08:15 | NUR ---
WOUND CARE EVALUATION NOTES: REASON FOR EVALUATION: MULTIPLE WOUNDS COMPLETE SKIN ASSESSMENT DONE ON THIS 61 Y/O MALE PATIENT FROM [facility] TO [facility], WITH INITIAL DIAGNOSIS OF HYPOTENSION AND WEAKNESS . 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 ALL ABOVE INFORMATION WAS OBTAINED FROM THE ADMISSION H&P. LABS ARE WBC 7.3, H/H 10.2/31.4, GLUCOSE 73, ALBUMIN 1.9. PATIENT IS AWAKE, ALERT, UNABLE TO FOLLOW COMMANDS. SKIN WARM TO TOUCH, THICKENED TOENAILS, NO EDEMA, NO HAIR GROWTH AND BILATERAL PEDAL PULSES PRESENT.INCONTINENT BOWEL. PLAN OF CARE AND PRESSURE PREVENTIVE MEASURES DISCUSSED WITH PRIMARY NURSE. DR. STEWART AT BED SIDE DISCUSSED WITH ALL RECOMMENDATIONS. INTEGUMENTARY: 1. UPPER BACK AND BLE DERMATITIS (RASHES) 2. PRESSURE ULCER INJURY STAGE 1 : LEFT KNEE 2X3CM, RIGHT KNEE 2X2 CM, LEFT HIP 2X1CM, LEFT LATERAL [id number], LEFT ANKLE 1X1CM AND LEFT HAND(2ND 1X1CM, 3RD 1X1CM AND 4TH 1.5X1CM METACARPALS) 3. RIGHT ANKLE DTI 2X2CM 100% MAROON 4. MULTIPLE UN-STAGEABLE SCABS TO RIGHT LATERAL FOOT WITH LARGEST MEASURED 2X1 CM AND SMALLEST 1X1CM DEPTH ARE UTD 5. UNSTAGEABLE PRESSURE ULCER LEFT MEDIAL FOOT 1.5X1.5CM, DEPTH UTD 6. RIGHT HIP UN-STAGEABLE 2X1 SOFT BROWN SLOUGH DEPTH UTD WITH PW PURPLE IN COLOR 5X5 CM INDICATED FURTHER DAMAGE, NO DRAINAGE, NO ODOR. RECOMMENDATIONS: -APPLY HYDRAGUARD TO UPPER BACK AND BLE RASHES BIDWC AND LEAVE IT OPEN TO AIR -APPLY HYDRAGUARD BID WC TO MULTIPLE PRESSURE ULCER INJURY STAGE 1 : BILATERAL KNEES,, LEFT HIP, LEFT LATERAL FOOT, LEFT ANKLE AND LEFT HAND(2ND, 3RD AND 4TH METACARPALS) -APPLY SKIN PREP BID WC TO RIGHT ANKLE DTI -PAINT WITH BETADINE SOLUTION TO MULTIPLE UN-STAGEABLE SCABS TO RIGHT LATERAL FOOT AND LEFT MEDIAL FOOT QD AND LEAVE IT OPEN TO AIR -CLEANSE RIGHT HIP WITH NS , PAT DRY, APPLY THERAHONEY GEL, APPLY HYDRAGUARD TO PW, COVER WITH ADAPTIC AND DRY DRESSING SECURE WITH TAPE Q DAY AND PRN IF SOILING -TURN AND REPOSITION PATIENT Q2H TO LEFT AND RIGHT SIDE ONLY TO OFFLOAD RIGHT HIP AND RIGHT FOOT -ASSESS AND MONITOR SKIN CONDITION DURING POSITION CHANGE, PLEASE PAY ATTENTION TO RIGHT LATERAL ANKLE, FOOT AND BILATERAL HEELS -OFFLOAD BILATERAL HEELS BY PLACING PILLOWS UNDER CALVES AT ALL TIMES, UNLESS OTHERWISE CONTRAINDICATED -PRESSURE REDISTRIBUTION SURFACE THERAPY -KEEP SKIN CLEAN AND DRY AT ALL TIMES. RECOMMENDATIONS DISCUSSED WITH PRIMARY RN AND DR. STEWART WILL FOLLOW UP PATIENT Q 7 -10 DAYS AND PRN. PLEASE CONTACT WOUND CARE NURSE FOR ANY CONCERNS AND CHANGES IN WOUND CONDITION
[2017-06-17] MEDS: DOCUSATE SODIUM 100 MG GELCAP PO SCH ×2 (09:00→21:00)
[2017-06-17] MEDS: clonazePAM 0.5 MG TAB PO SCH (09:00)
[2017-06-17] MEDS: LEVOTHYROXINE 0.05 MG TAB PO SCH (09:00)
[2017-06-17] MEDS ORDERED: ENOXAPARIN 40 MG/0.4 ML SYR SUBQ SCH (09:00)
--- NOTE | 2017-06-17 09:05 | NUR ---
DR. STEWART IN TO SEE AND EXAMINE PT. ORDERS RECEIVED. PO MEDS HELD PER DR. STEWART.
--- NOTE | 2017-06-17 09:07 | NUR ---
PATIENT HAS BEEN SCREENED AND CATEGORIZED HIGH NUTRITION RISK. PATIENT WILL BE SEEN WITHIN 1-2 DAYS OF ADMISSION. 06/16/17-06/17/[address]
[2017-06-17] MEDS: VANCOMYCIN 1GM/DEXT 5% PREMIX 200 ML IV SCH (09:16)
[2017-06-17 09:23] LABS: LACTATE DEHYDROGENASE 163 IU/L (121-224)
[2017-06-17] MEDS: DEXT 5% / NACL 0.45% 1,000 ML IV SCH ×2 (09:25→21:28)
[2017-06-17 10:04] LABS: HEMATOCRIT 31.4 % (36-52); HEMOGLOBIN 10.2 g/dL (12.0-18.0); MEAN CORPUSCULAR HEMOGLOBIN 30 pg (27-31); MEAN CORPUSCULAR HGB CONC 32 g/dL (33-37); MEAN CORPUSCULAR VOLUME 93 fL (80-94); PLATELET COUNT (AUTO) 69 K/uL (140-450); RED BLOOD CELL COUNT(AUTO) 3.39 MIL/uL (4.20-6.10); RED CELL DISTRIBUTION WIDTH 16.4 % (11.6-13.7); WHITE BLOOD COUNT (AUTO) 7.3 K/uL (4.8-10.8)
[2017-06-17 10:13] LABS: PROTHROMBIN TIME 11.2 secs (10.8-13.4)
[2017-06-17 10:20] LABS: ANION GAP 11.9 (8-16); CARBON DIOXIDE 31.3 mmol/L (21-32); POTASSIUM 4.2 mmol/L (3.5-5.1); TOTAL BILIRUBIN 0.4 mg/dL (0.0-1.0)
[2017-06-17 10:21] LABS: ALBUMIN 1.9 g/dL (3.4-5.0)
[2017-06-17 10:43] LABS: LYMPHOCYTES % (MANUAL) 16 % (20-46); METAMYELOCYTES % 2 % (0-0); MONOCYTES % (MANUAL) 8 % (5-12)
--- NOTE | 2017-06-17 12:00 | NUR ---
DR. BERNABE IN TO SEE AND EXAMINE PT. WILL FOLLOW UP ON ORDERS.
--- NOTE | 2017-06-17 13:06 | NUR ---
FAXED INITIAL REVIEW TO [facility] [phone] PHONE CATERINA [phone]
--- NOTE | 2017-06-17 13:45 | NUR ---
DR. MILLARD IN TO SEE AND EXAMINE PT. WILL FOLLOW UP WITH NEW ORDERS.
--- NOTE | 2017-06-17 13:46 | NUR ---
DR. MILLARD MADE AWARE THAT PO MEDS HAVE BEEN HELD PRIOR TO SWALLOW EVAL.
--- NOTE | 2017-06-17 13:48 | NUR ---
I called [facility] [employer] Rosemary Fatima as a courtesy call to provide Patient's status, gather patient's information and confirm return placement when patient is ready for D/C. [employer] was not available. I left my contact number on the voicemail and I requested a call back
[2017-06-17] MEDS ORDERED: THERAHONEY GEL 42.5 GM TP PRN (15:15)
[2017-06-17] MEDS ORDERED: HYDRAGUARD CREAM TP PRN (15:15)
--- NOTE | 2017-06-17 15:30 | NUR ---
REPORT GIVEN TO BONG RN AT TELEMETRY. PT IS TRANSFERRED TO ROOM 124 A. PT IS IN STABLE CONDITION.
--- NOTE | 2017-06-17 15:31 | NUR ---
REPORT RECEIVED FROM ICU NURSE CASSI AT BEDSIDE FOR CONTINUITY OF CARE. PATIENT ARRIVED VIA BED, PATIENT HAS HX OF DEMENTIA, MENTALLY RETARDATION, PSYCHOSIS, AND SCHIZOPHRENIA. AOX1, PATIENT RESPONDS TO NAME, IS AROUSABLE. PATIENT ON STANDARD PRECAUTION, SKIN IS NOT INTACT, R HIP DTI, RASHES ON BLE, AND L HIP BLANCHABLE. PHOTOS IN CHART. DIAGNOSED WITH FEVER AND ALOC. ON TELE MONITOR, HAS SR. PATIENT ON O2 OXYMIZER 5L. BREATHING EVEN AND UNLABORED. IV ON R HAND 20 G WITH D5 1/2 NS AT 75 ML/HR, IV ON L AC 20G SL. PATIENT HAS BRANNON CATHETER DRAINING TO GRAVITY, 450 ML REMOVED FROM BAG, URINE CLEAR DARK YELLOW. PATIENT CLEANED AND CHANGED INTO YELLOW GOWN, PATIENT HAD A BM, BROWN AND FIRM. PATIENT ON REGULAR DIET BUT LUNCH WAS HELD PENDING SWALLOW EVALUATION FROM SPEECH THERAPIST. SAFETY PRECAUTIONS IN PLACE, BED ALARM ON, BED ON LOWEST SETTING, WILL CONTINUE TO MONITOR PATIENT.
[2017-06-17] MEDS: ALBUTEROL SULFATE/IPRATROPIU 3 ML SOL IH SCH ×3 (16:10→23:34)
[2017-06-17] MEDS: ACETYLCYSTEINE 10% (100 MG/ML) 100 MG/ML VIAL INH SCH ×3 (16:12→23:40)
--- NOTE | 2017-06-17 18:15 | NUR ---
PATIENT'S NARES WERE GIVEN NORMAL SALINE AND SUCTIONED. PATIENT TOLERATED IT WELL. SAFETY PRECAUTIONS IN PLACE, BED ALARM ON, BED ON LOWEST SETTING, WILL CONTINUE TO MONITOR PATIENT.
--- NOTE | 2017-06-17 18:32 | NUR ---
SPEECH THERAPIST WITH PATIENT DOING SWALLOW EVALUATION. WILL AWAIT RESULTS.
--- NOTE | 2017-06-17 18:55 | NUR ---
* ST NOTE * Pt seen at bedside w/nsg and SECURITY FLEX UTILITY OFFICER present. Pt appearing increasingly alert and drowsy. Bedside dysphagia and oral mechanism exams completed. See evaluation report for further details. Pt observed to have pre-existing cough prior to PO feeding trials beginning. Pt tolerating 1/1 alternating PO trial of honey-thick apple juice 3-4 CCs at a time via a spoon w/o s/s of aspiration. Pt however tolerating 0/1 alternating PO trials of puree apple sauce 3-4 CCs at a time via a spoon, demonstrating coughing immediately after PO intake of puree textures. Although pt already presenting with pre-existing cough, pt's dx of PNA suggests pt may be aspirating on PO intake of solids and/or liquids. Thus, it is recommended pt remain NPO at this time until pt's medical condition stabilizes and pt becomes more alert/awake. Additionally it is recommended pt receive skilled CARD PUNCHING MACHINE OPERATOR services to further address swallow function and pt's tolerance for PO intake, w/pt indifferent but caregivers/nsg and SECURITY FLEX UTILITY OFFICER verbalizing understanding and agreement w/clinician's recommendations. ST to ff 2-3x in next 1 week. Pt and caregivers/nsg education completed regarding results of evaluation; benefits of receiving skilled CARD PUNCHING MACHINE OPERATOR services; benefits of abiding by NPO status; POC; and prognosis for improvement; with pt indifferent but caregivers/nsg verbalizing understanding and agreement w/clinician's recommendations. Recommend: - NPO - Frequent oral care 2/2 to pt coughing on his own secretions - Suction PRN ST to ff 2-3x/week for 1 week to further assess pt's tolerance for PO intake. G8996 CM G8997 CM NOMS Level 6 Time In/Out 18:15 - 18:45
--- NOTE | 2017-06-17 19:27 | NUR ---
REPORT GIVEN TO CRAYON MOLDING MACHINE OPERATOR RN AT BEDSIDE FOR CONTINUITY OF CARE. PATIENT IN STABLE CONDITION.
--- NOTE | 2017-06-17 19:30 | NUR ---
RECEIVED PT IN STABLE CONDITION FROM AM NURSE. PT IS ON TELE MONITOR. BEDREST. APHASIC. ON O2 4L BY OXYMIZER. O2 SAT 96%. IVF INFUSING WELL ON THE RT HAND #20. HL ON THE LT AC #20. WITH BRANNON CATHETER DRAINING WELL . BED ON LOW POSITION. FREQUENT ROUNDS NEEDED. SIDE RAILS UP X2. CALL LIGHT PLACED WITHIN EASY REACH. WILL CONTINUE TO MONITOR.
[2017-06-17] MEDS: QUEtiapine FUMARATE 100 MG TAB PO SCH (21:00)
--- NOTE | 2017-06-17 22:49 | NUR ---
PAGED DR. STEWART FOR PT HAS SOME PAUSES ON HIS HR ON THE MONITOR. DR. LUNA HAND SANDER . CALLED BACK AND MADE AWARE . NO NEW ORDER MADE. JUST TO CONTINUE MONITOR. ALSO TO CHANGE DIET TO NPO FOR NOW AND ATIVAN IVP PRN .
[2017-06-17] MEDS ORDERED: LORazepam 2 MG/ML VIAL IVP PRN (22:55)
--- NOTE | 2017-06-17 23:40 | NUR ---
I WAS NOT ABLE TO SCAN THE [id number]% , ON THE BAG OR THE SYRINGE BAR CODE, BUT ADMINISTERED TO THE PT. Addendum: 06/17/17 at 2344 by Isabel Villareal RT JESSICA RETAIL SUPPORT MANAGER WAS WITNESS AND ALSO TRIED TO SCAN MEDICATION AND WAS UNABLE
[2017-06-18 00:17] VITALS: BP 119/60
[2017-06-18] MEDS: HYDRAGUARD CREAM TP SCH ×2 (01:34→13:00)
[2017-06-18] MEDS: NACL 0.9% IRR 250 ML BOTTLE IR SCH ×2 (01:34→13:00)
--- NOTE | 2017-06-18 02:00 | NUR ---
PT ASLEEP. NO S/S OF ANY DISCOMFORT NOTED. WILL CONTINUE TO MONITOR.
[2017-06-18] MEDS: DEXT 5% / NACL 0.45% 1,000 ML IV SCH ×2 (02:32→10:48)
[2017-06-18] MEDS: ALBUTEROL SULFATE/IPRATROPIU 3 ML SOL IH SCH ×6 (03:47→23:11)
[2017-06-18 04:00] VITALS: BP 127/72
--- NOTE | 2017-06-18 04:00 | NUR ---
PAT HAS BEEN REPOSITIONED FOR COMFORT Q2HRS. NO DISTRESS NOTED.
[2017-06-18] MEDS: PIPER/TAZO 3.375GM/D5W PREMIX 50 ML IV SCH ×3 (04:36→20:40)
--- NOTE | 2017-06-18 05:30 | NUR ---
MADE ROUNDS, PT ASLEEP. NO S/S OF ANY DISCOMFORT NOR PAIN NOTED. WILL CONTINUE TO MONITOR.
[2017-06-18 06:30] LABS: BASOPHILS # (AUTO) 0.1 K/uL (0.00-0.22); BASOPHILS % (AUTO) 0.6 % (0.0-2.0); EOSINOPHILS # (AUTO) 0.1 K/uL (0-0.4); EOSINOPHILS % (AUTO) 0.8 % (0.0-4.0); HEMATOCRIT 30.3 % (36-52); HEMOGLOBIN 9.9 g/dL (12.0-18.0); LYMPHOCYTES # (AUTO) 1.1 K/uL (2.0-11.5); LYMPHOCYTES % (AUTO) 11.9 % (20.5-51.1); MEAN CORPUSCULAR HEMOGLOBIN 31 pg (27-31); MEAN CORPUSCULAR HGB CONC 33 g/dL (33-37); MEAN CORPUSCULAR VOLUME 93 fL (80-94); MONOCYTES # (AUTO) 1.3 K/uL (0.8-1.0); NEUTROPHILS # (AUTO) 6.3 K/uL (1.8-7.7); NEUTROPHILS % (AUTO) 71.7 % (42.2-75.2); PLATELET COUNT (AUTO) 90 K/uL (140-450); RED BLOOD CELL COUNT(AUTO) 3.26 MIL/uL (4.20-6.10); RED CELL DISTRIBUTION WIDTH 16.6 % (11.6-13.7); WHITE BLOOD COUNT (AUTO) 8.9 K/uL (4.8-10.8)
[2017-06-18 07:15] LABS: PROTHROMBIN TIME 11.3 secs (10.8-13.4)
--- NOTE | 2017-06-18 07:30 | NUR ---
ENDORSED PT IN STABLE CONDITION TO AM NURSE.
--- NOTE | 2017-06-18 07:31 | NUR ---
RECEIVED REPORT FROM SOFTWARE TEST AND VALIDATION ENGINEER NURSE PRECIOUS AT BEDSIDE FOR CONTINUITY OF CARE. PT IN STABLE CONDITION.
--- NOTE | 2017-06-18 07:31 | NUR ---
RECEIVED REPORT FROM INDUSTRIAL RELATIONS MANAGER NURSE PRECIOUS AT BEDSIDE FOR CONTINUITY OF CARE. PT IS AWAKE AND NON VERBAL. INTRODUCED SELF AND UPDATED BOARD. PT ON OXIMIZER 4L WITH O2 SAT AT 95%. NON-PRODUCTIVE COUGH. PT NPO STATUS AWAITING SWALLOW EVAL. IV TO R HAND 20G INFUSING D5 1/2NS @75ML/HR. F/C IN PLACE. NO SIGNS OF DISTRESS. BED IN LOW POSITION, CALL LIGHT WITHIN REACH. WILL CONTINUE TO MONITOR.
[2017-06-18 08:00] VITALS: BP 148/75
[2017-06-18 08:00] LABS: ALBUMIN 1.9 g/dL (3.4-5.0); ANION GAP 15.2 (8-16); CARBON DIOXIDE 28.4 mmol/L (21-32); POTASSIUM 3.6 mmol/L (3.5-5.1); TOTAL BILIRUBIN 0.6 mg/dL (0.0-1.0)
[2017-06-18 08:27] LABS: CREATININE 0.9 mg/dL (0.7-1.3)
[2017-06-18] MEDS: clonazePAM 0.5 MG TAB PO SCH (09:00)
[2017-06-18] MEDS: DOCUSATE SODIUM 100 MG GELCAP PO SCH ×2 (09:00→20:40)
[2017-06-18] MEDS: LEVOTHYROXINE 0.05 MG TAB PO SCH (09:00)
--- NOTE | 2017-06-18 09:00 | NUR ---
ADMINISTERED SCHEDULED MEDS. NON-ADMIN PO MEDS. PT NPO STATUS. REPORTED TO DR. STEWART. RECEIVED ORDERS.
[2017-06-18] MEDS: VANCOMYCIN 1GM/DEXT 5% PREMIX 200 ML IV SCH (09:46)
[2017-06-18] MEDS ORDERED: DIAZEPAM PFS 10 MG/2 ML SYR IVP SCH (10:50)
--- NOTE | 2017-06-18 11:04 | NUR ---
PLATFORM MAN note (dysphagia therapy) [phone]. S/O: Dysphagia therapy provided following clearance by RN (Harriet). Pt was positioned fully upright in bed using HOB elevation and bed tilt functions for dysphagia therapy session, then pt was returned to low/locked bed position with HOB about 40 degrees at end of dysphagia therapy session. Pt awake/alert, but resistive to PO presentations, but would accept with additional attempts. Pt's baseline pulse ox was 93%, which decreased to 91% with PO trials. Pt's 06/18/2017 CXR: "Patchy pneumonia with more focal consolidation in the right base. Overall findings appear similar to prior study. A component of superimposed vascular congestion is difficult to exclude." A/P: Pt was trialed on thin liquids by spoon and applesauce by spoon. Pt demonstrated weak/delayed coughing and O2 desaturation with swallowing attempts. Pt remains unsafe for PO and at high risk for aspiration/PNA at this time. Recommend: 1) STRICT NPO (oral cares only) 2) consider alternative method(s) of nutrition/hydration/medication vs comfort measures, as appropriate 3) PLATFORM MAN to f/u per current plan of care for continued assessment of pt's ability to take PO safely, as appropriate. PVE for d/w RN (Harriet) prior to and following dysphagia therapy session.
[2017-06-18 12:00] VITALS: BP 140/79
[2017-06-18] MEDS: THERAHONEY GEL 42.5 GM TP SCH (13:00)
[2017-06-18] MEDS: CHLORHEXADINE GLUC 2% CLOTH TP SCH (13:00)
--- NOTE | 2017-06-18 13:00 | NUR ---
APPLIED HYDRAGUARD TO BLE AND BUE. APPLIED THERAHONEY GEL TO LEFT AND RIGHT HIP. CHANGED DRESSING. NO DRAINAGE, NO ODOR NOTED. DRESSING DRY AND INTACT. REPOSITIONED PT TO RIGHT LATERAL. O2 O2 5L OXIMIZER. O2 SAT 91%. NO SIGNS OF DISTRESS. BED IN LOW POSITION, WHEELS LOCKED, WILL CONTINUE TO MONITOR.
--- NOTE | 2017-06-18 13:22 | NUR ---
FAXED CONCURRENT REVIEW TO [facility] [phone] PHONE CATERINA [phone]
[2017-06-18] MEDS ORDERED: PPN PER PHARMACY MC PRN (14:30)
[2017-06-18 16:00] VITALS: BP 124/66
[2017-06-18] MEDS: MUPIROCIN 2% OINT 22 GM TUBE TP SCH (16:00)
--- NOTE | 2017-06-18 19:30 | NUR ---
ENDORSED PT TO ENTRY LEVEL CHEMIST NURSE LUCIAN AT BEDSIDE FOR CONTINUITY OF CARE. PT IN STABLE CONDITION
--- NOTE | 2017-06-18 19:31 | NUR ---
BEDSIDE REPORT RECEIVED FROM DAY SHIFT NURSE PATI RN, PT STABLE NO DISTRESS NOTED, IV TO L AC 20 G SL, PATENT, AND RH 20G, LEAKING, WILL INSERT NEW IV, PT ON 4LPM O2 VIA OXIMIZER, NO SOB, O2 SAT AT 92%, DRESSINGS CLEAN DRY AND INTACT, INITIAL ASSESSMENT DONE, ALL SAFETY PRECAUTION MET, CALL LIGHT WITHIN REACH, WILL CONTINUE TO MONITOR. Addendum: 06/19/17 at 0043 by Eula Tadeo RN BRANNON IN PLACE DRAINING DARK JIMBO URINE.
[2017-06-18 20:00] VITALS: BP 131/75
[2017-06-18] MEDS: DIAZEPAM PFS 10 MG/2 ML SYR IVP SCH (20:40)
[2017-06-18] MEDS: QUEtiapine FUMARATE 100 MG TAB PO SCH (20:40)
--- NOTE | 2017-06-18 20:40 | NUR ---
DUE MEDICATION GIVEN, PT STABLE, NO DISTRESS NOTED, CALL LIGHT WITHIN REACH, WILL CONTINUE TO MONITOR.
[2017-06-19] VITALS (7 sets, daily range): BP systolic 135–155; BP diastolic 75–88
[2017-06-19] MEDS: DEXT 5% / NACL 0.45% 1,000 ML IV SCH ×3 (00:08→19:49)
--- NOTE | 2017-06-19 00:10 | NUR ---
PT O2 SAT 88, CALLED RT, GABO RT CAME AND ASSESSED PT, PT ON 6LPM O2 VIA OXIMIZER, NO DISTRESS NOTED, CALL LIGHT WITHIN REACH, WILL CONTINUE TO MONITOR.
[2017-06-19] MEDS: NACL 0.9% IRR 250 ML BOTTLE IR SCH ×2 (00:22→13:00)
[2017-06-19] MEDS: HYDRAGUARD CREAM TP SCH ×2 (00:22→13:31)
--- NOTE | 2017-06-19 00:22 | NUR ---
WOUND CARE AND SKIN CARE GIVEN TO PT, PT TOLERATED WELL, NO DISTRESS NOTED, CALL LIGHT WITHIN REACH, WILL CONTINUE TO MONITOR.
[2017-06-19] MEDS: ALBUTEROL SULFATE/IPRATROPIU 3 ML SOL IH SCH ×6 (02:55→23:00)
--- NOTE | 2017-06-19 04:10 | NUR ---
CHECKED ON PT, PT STABLE, NO DISTRESS NOTED, REPOSITIONED PT AND CLEANED PT, PT TOLERATED WELL. WILL CONTINUE TO MONITOR.
[2017-06-19] MEDS: PIPER/TAZO 3.375GM/D5W PREMIX 50 ML IV SCH ×3 (04:30→21:28)
[2017-06-19 06:13] LABS: BASOPHILS # (AUTO) 0.1 K/uL (0.00-0.22); BASOPHILS % (AUTO) 0.9 % (0.0-2.0); EOSINOPHILS # (AUTO) 0.1 K/uL (0-0.4); EOSINOPHILS % (AUTO) 0.5 % (0.0-4.0); HEMOGLOBIN 10.4 g/dL (12.0-18.0); LYMPHOCYTES # (AUTO) 1.1 K/uL (2.0-11.5); LYMPHOCYTES % (AUTO) 10.2 % (20.5-51.1); MEAN CORPUSCULAR HEMOGLOBIN 31 pg (27-31); MEAN CORPUSCULAR HGB CONC 34 g/dL (33-37); MEAN CORPUSCULAR VOLUME 93 fL (80-94); MONOCYTES # (AUTO) 1.3 K/uL (0.8-1.0); MONOCYTES % (AUTO) 12.4 % (1.7-9.3); NEUTROPHILS # (AUTO) 7.7 K/uL (1.8-7.7); PLATELET COUNT (AUTO) 111 K/uL (140-450); RED BLOOD CELL COUNT(AUTO) 3.32 MIL/uL (4.20-6.10); RED CELL DISTRIBUTION WIDTH 16.3 % (11.6-13.7); WHITE BLOOD COUNT (AUTO) 10.3 K/uL (4.8-10.8)
[2017-06-19 06:14] LABS: LD1 FRACTION 21 % (17-32); LD2 FRACTION 33 % (25-40); LD3 FRACTION 22 % (17-27); LD4 FRACTION 11 % (5-13); LD5 FRACTION 13 % (4-20)
[2017-06-19 06:21] LABS: PROTHROMBIN TIME 10.9 secs (10.8-13.4)
[2017-06-19 06:27] LABS: MAGNESIUM 1.7 mg/dL (1.8-2.4); PHOSPHORUS 3.4 mg/dL (2.5-4.9)
[2017-06-19 06:43] LABS: ALBUMIN 1.9 g/dL (3.4-5.0); ANION GAP 11.9 (8-16); CARBON DIOXIDE 31.8 mmol/L (21-32); CREATININE 0.8 mg/dL (0.7-1.3); TOTAL BILIRUBIN 0.7 mg/dL (0.0-1.0)
[2017-06-19 06:45] LABS: POTASSIUM 2.7 mmol/L (3.5-5.1)
--- NOTE | 2017-06-19 07:10 | NUR ---
RECEIVED CRITICAL VALUE OF K 2.7, PAGED DR LUNA REGARDING CRITICAL VALUE, CALLED BACK TO PUT IN ORDER KRIDER 30MEQ IV.
--- NOTE | 2017-06-19 07:20 | NUR ---
GAVE REPORT TO DAY SHIFT NURSE RYANNE RN, ENDORSED PLAN OF CARE. PT STABLE, NO DISTRESS NOTED, CALL LIGHT WITHIN REACH.
--- NOTE | 2017-06-19 07:30 | NUR ---
RECEIVED PT ON BED [id number], TO NAME ONLY, CONFUSED. NO SOB NOTED, ON 4 LPM OXYMIZER WITH 02 SATS 93%. NO SIGNS OF PAIN AT THIS TIME. IV TO LT AC AND LT HAND PATENT AND INTACT. CHEST COARSE, DIMINISHED AIR ENTRY TO THE BASES. ABDOMEN SOFT, BOWEL SOUNDS PRESENT. PT ON NPO FOR PROCEDURE. WITH BRANNON DRAINING DARK JIMBO URINE IN MODERATE AMOUNTS. WITH SCD'S IN PLACE. BED ON LOW POSITION, 3 SIDE RAILS UP, BED ALARM ON. WILL REPOSITION PT EVERY 2 HRS.
--- NOTE | 2017-06-19 08:15 | NUR ---
Rosemary Rouse Scrap Picker from [facility] tel# made a return call and stated that it will take a day or two to have a consent signed thru them but if it is an urgent procedure or a medical necessity, two doctors can sign the informed consent in behalf of the pt. will notify Dr. Boo and Dr. Hope Ellington regarding the matter.
[2017-06-19] MEDS ORDERED: POTASSIUM CHLORIDE 30 MEQ, LIDOCAINE 1% 25 MG in NACL 0.9% 250 ML IV SCH (08:30)
[2017-06-19] MEDS: clonazePAM 0.5 MG TAB PO SCH (09:00)
[2017-06-19] MEDS: LEVOTHYROXINE 0.05 MG TAB PO SCH (09:00)
[2017-06-19] MEDS: DOCUSATE SODIUM 100 MG GELCAP PO SCH ×2 (09:00→21:00)
[2017-06-19] MEDS: fentaNYL 0.05 MG/ML VIAL ONE ×2 (09:49→12:13)
[2017-06-19] MEDS: MIDAZOLAM 2 MG/2 ML VIAL ONE ×2 (09:49→12:13)
--- NOTE | 2017-06-19 10:00 | NUR ---
DR. STEWART HERE TO SEE PT.
[2017-06-19] MEDS: DIAZEPAM PFS 10 MG/2 ML SYR IVP SCH ×2 (10:05→21:32)
[2017-06-19] MEDS: VANCOMYCIN 1GM/DEXT 5% PREMIX 200 ML IV SCH ×2 (10:41→21:28)
--- NOTE | 2017-06-19 11:43 | NUR ---
PATIENT OUT OF ROOM IN OR FOR G-TUBE PLACEMENT HEEL SEAT FITTER MACHINE TO ATTEMPT HHN THERAPY AT A LATER TIME
--- NOTE | 2017-06-19 11:46 | NUR ---
PT WHEELED SURGERY IN STABLE CONDITION.
--- NOTE | 2017-06-19 12:08 | NUR ---
I called Patient's Board and Lna Gracie and ask if facility provides Patient's with equipment when they are in need such as O2 and asked if patient had one already in the facility. Gracie stated that the facility do not have that ability; and if patient's are in need of those services, equipment and other usually [facility], and Insurances will meet patient's needs with and with an MD. Orders. Gracie also stated that Patient did not have O2 before in facility. I Thank him for information and ended the call.
[2017-06-19] MEDS: diphenhydrAMINE 50 MG/ML VIAL ONE ×2 (12:20→13:31)
--- NOTE | 2017-06-19 12:40 | NUR ---
PT BACK FROM SURGERY IN FAIR CONDITION. PER TASIA-OR NURSE, DR. Hope LEWIS CAN NOT COMPLETE THE PROCEDURE (PEG PLACEMENT) DUE TO PT'S O2 SATURATIONS DROPPED 80% ON 4 LPM O2 VIA OXYMIZER. PER TASIA, DR. Hope LEWIS WILL DO THE PEG PLACEMENT TOMORROW UNDER ANESTHESIA. BAR PILOT NURSE NOTIFIED.
--- NOTE | 2017-06-19 13:05 | NUR ---
PT SEEN BY DR. MILLARD WITH NEW ORDERS.
[2017-06-19] MEDS: THERAHONEY GEL 42.5 GM TP SCH (13:30)
[2017-06-19] MEDS: CHLORHEXADINE GLUC 2% CLOTH TP SCH (13:30)
--- NOTE | 2017-06-19 14:12 | NUR ---
CM NOTE FAXED CONCURRENT REVIEW TO [facility] (FAX# [phone], ATTN: CATERINA #[phone]) AND [facility] (FAX# [phone], C: [phone])
[2017-06-19] MEDS ORDERED: MAG SULF 2000 MG/WATER PREMIX 50 ML IV SCH (15:00)
[2017-06-19] MEDS ORDERED: POTASSIUM CHLORIDE 20% 40 MEQ/15 ML UDC GT SCH ×2 (15:00→19:00)
--- NOTE | 2017-06-19 15:11 | NUR ---
DECREASED SATURATION TO 88% ON SUPPLEMENTAL OXYGEN AT 4 LPM VIA OXYMIZER CHANGED OXYGEN DEVICE TO SIMPLE MASK AT 6 LPM
--- NOTE | 2017-06-19 15:13 | NUR ---
SATURATION 95% ON SIMPLE MASK AT 6 LPM VICE PRESIDENT PROCESS TO NOTIFY RYANNE/RN
[2017-06-19] MEDS ORDERED: POTASSIUM CHLORIDE 30 MEQ, LIDOCAINE 1% 25 MG in NACL 0.9% 250 ML IV ONE (15:50)
[2017-06-19] MEDS: MUPIROCIN 2% OINT 22 GM TUBE TP SCH (16:44)
[2017-06-19] MEDS ORDERED: POTASSIUM CHLORIDE 60 MEQ, LIDOCAINE 1% 25 MG in NACL 0.9% 500 ML IV SCH (17:00)
--- NOTE | 2017-06-19 17:30 | NUR ---
PT AWAKE, NO SOB NOTED, ON O2 AT 6PLM VIA SIMPLE MASK WITH O2 SATS BETWEEN 92-96%.
--- NOTE | 2017-06-19 19:01 | NUR ---
PT RESTING ON MODERATE HIGH BACK REST, NO SOB NOTED. NO SIGNS OF PAIN AT THIS TIME. WILL ENDORSE TO NEXT SHIFT NURSE FOR CONTINUITY OF CARE.
--- NOTE | 2017-06-19 19:20 | NUR ---
RECEIVED PT IN STABLE CONDITION FROM AM NURSE. AWAKE,ALERT X1. BEDBOUND. ON TELE MONITOR. CONTACT ISOLATION . HAS O2 BY MASK 6L/MIN .O2 SAT 94%. HAS IV INFUSING ON LT AC #20, HL ON LT FA #20. LT HAND WITH SOME REDNESS ON AND SWELLING, ELEVATED ON PILLOW. WITH PRESSURE ULCERS . HAS BRANNON CATHETER TO GRAVITY . PT TO KEEP NPO . BED ON LOW POSITION, FREQUENT ROUNDS NEEDED. CALL LIGHT PLACED WITHIN EASY REACH. WILL CONTINUE TO MONITOR.
--- NOTE | 2017-06-19 20:30 | NUR ---
PT IS AWAKE, MUMBLES. NO ACUTE RESPIRATORY DISTRESS . O2 SAT 02-93%. WILL CONTINUE TO MONITOR.
[2017-06-19] MEDS: QUEtiapine FUMARATE 100 MG TAB PO SCH (21:00)
[2017-06-19] MEDS ORDERED: DIAZEPAM PFS 10 MG/2 ML SYR ONE (21:26)
--- NOTE | 2017-06-19 21:30 | NUR ---
REPOSITIONED FOR COMFORT. O2 SAT 95% AT THIS TIME. WILL CONTINUE TO MONITOR.
--- NOTE | 2017-06-19 22:30 | NUR ---
PT IS ASLEEP. NO S/S OF ANY DISCOMFORT NOR DISTRESS NOTED. O2 SAT 96%.
--- NOTE | 2017-06-19 23:15 | NUR ---
PATIENT SLEEPING COMFORTABLY, HHN TREATMENT NOT GIVEN, SAO2 96%, NO SOB NOTED
--- NOTE | 2017-06-19 23:49 | NUR ---
PT ASLEEP. NO DISTRESS NOTED. O2 SAT AT THIS TIME 96%.
[2017-06-20] MEDS: HYDRAGUARD CREAM TP SCH ×2 (01:00→13:00)
[2017-06-20] MEDS: NACL 0.9% IRR 250 ML BOTTLE IR SCH ×2 (01:00→13:00)
--- NOTE | 2017-06-20 02:00 | NUR ---
PT ASLEEP. NO SS/S OF ANY RESPIRATORY DISTRESS NOTED.
[2017-06-20] MEDS: DEXT 5% / NACL 0.45% 1,000 ML IV SCH ×4 (02:48→21:08)
[2017-06-20] MEDS: ALBUTEROL SULFATE/IPRATROPIU 3 ML SOL IH SCH ×6 (02:57→23:09)
[2017-06-20 03:41] VITALS: BP 133/72
--- NOTE | 2017-06-20 04:00 | NUR ---
REPOSITIONED FOR COMFORT. NO DISTRESS NOTED.
[2017-06-20] MEDS: PIPER/TAZO 3.375GM/D5W PREMIX 50 ML IV SCH ×3 (04:40→20:38)
--- NOTE | 2017-06-20 06:00 | NUR ---
O2 SAT 88%-89%. BUT PT NOT ON DISTRESS. HOB ELEVATED . RECHECKED WITH RT PULSE OXIMETER 92%. PULSE OX PROBE CHANGED TO A NEW ONE. O2 SAT 95%-96%.
[2017-06-20 06:06] LABS: HEMATOCRIT 29.5 % (36-52); HEMOGLOBIN 9.9 g/dL (12.0-18.0); MEAN CORPUSCULAR HEMOGLOBIN 31 pg (27-31); MEAN CORPUSCULAR HGB CONC 34 g/dL (33-37); MEAN CORPUSCULAR VOLUME 92 fL (80-94); PLATELET COUNT (AUTO) 126 K/uL (140-450); RED BLOOD CELL COUNT(AUTO) 3.21 MIL/uL (4.20-6.10); RED CELL DISTRIBUTION WIDTH 15.9 % (11.6-13.7); WHITE BLOOD COUNT (AUTO) 9.4 K/uL (4.8-10.8)
[2017-06-20 06:24] LABS: PROTHROMBIN TIME 11.3 secs (10.8-13.4)
[2017-06-20 06:28] LABS: MAGNESIUM 1.9 mg/dL (1.8-2.4); PHOSPHORUS 3.3 mg/dL (2.5-4.9)
--- NOTE | 2017-06-20 06:30 | NUR ---
CHEST X RAY DONE INSIDE ROOM. WILL FOLLOW UP RESULT.
[2017-06-20 06:31] LABS: ALBUMIN 1.8 g/dL (3.4-5.0); ANION GAP 10.4 (8-16); CARBON DIOXIDE 32.9 mmol/L (21-32); CREATININE 0.6 mg/dL (0.7-1.3); POTASSIUM 3.3 mmol/L (3.5-5.1); TOTAL BILIRUBIN 0.7 mg/dL (0.0-1.0)
[2017-06-20 07:12] LABS: EOSINOPHILS % (MANUAL) 6 % (0-4); LYMPHOCYTES % (MANUAL) 15 % (20-46); MONOCYTES % (MANUAL) 12 % (5-12)
--- NOTE | 2017-06-20 07:25 | NUR ---
RECEIVED PT IN STABLE CONDITION FROM NIGHTSHIFT NURSE. AWAKE,ALERT X1. PATIENT IS BEDBOUND AND ON TELE MONITORING. CONTACT ISOLATION IN PLACE. PATIENT HAS MASK RECEIVING O2 6L BY MASK WITH O2 SAT 95%. PT HAS BRANNON CATHETER IN PLACE WITH 400 ML NOTED DRAINING WELL. PATIENT IS CURRENT NPO AND AWAITING DIAGNOSTIC PROCEDURE. BED ON LOW POSITION, FREQUENT ROUNDS NEEDED. CALL LIGHT PLACED WITHIN EASY REACH. WILL CONTINUE TO MONITOR.
--- NOTE | 2017-06-20 07:25 | NUR ---
ENDORSED PT IN STABLE CONDITION TO AM NURSE.
[2017-06-20 08:00] VITALS: BP 149/70
[2017-06-20] MEDS: LEVOTHYROXINE 0.05 MG TAB PO SCH (09:00)
[2017-06-20] MEDS: clonazePAM 0.5 MG TAB PO SCH (09:00)
[2017-06-20] MEDS: DOCUSATE SODIUM 100 MG GELCAP PO SCH ×2 (09:00→20:39)
[2017-06-20] MEDS ORDERED: THERAHONEY WOUND DRESSING TP SCH (09:00)
--- NOTE | 2017-06-20 09:55 | NUR ---
PATIENT UNABLE TO SWALLOW MEDICATIONS. HELD ALL PO MEDICATIONS. NOTIFIED DOCTOR.
[2017-06-20] MEDS: VANCOMYCIN 1GM/DEXT 5% PREMIX 200 ML IV SCH ×2 (10:26→20:38)
[2017-06-20] MEDS: DIAZEPAM PFS 10 MG/2 ML SYR IVP SCH ×2 (10:54→20:39)
--- NOTE | 2017-06-20 10:57 | NUR ---
CANDY WRAPPING MACHINE OPERATOR note (attempted dysphagia therapy and discharge summary report) 1055. CANDY WRAPPING MACHINE OPERATOR came to attempt to provide dysphagia therapy; however, pt currently on mask for O2 support and NPO pending reattempt of PEG placement (per physician documentation, PEG placement was attempted yesterday, but was unable to be completed due to pt agitation and pt desaturating). PEG to be reattempted today under anesthesia, per RN (Glen) report. No family present at this time. Pt's 06/20/2017 CXR: "Extensive bilateral air space opacities are present throughout the right and left lungs, especially at the right base and left upper lobe hemithorax. There are increased interstitial markings. No significant change in extensive bilateral airspace opacities which could be a manifestation of pneumonia and/or edema." DISCHARGE SUMMARY REPORT S/O: During this admission, pt was provided with bedside evaluation (06/17/2017) with recommendations for strict NPO and consideration for alternative method(s) of nutrition/hydration/medication vs comfort measures, as appropriate. Pt was provided with dysphagia therapy on 06/18/2017 with same recommendations. A/P: As of 06/20/2017, pt's O2 support requirements have increased since 06/18/2017 dysphagia therapy session. CANDY WRAPPING MACHINE OPERATOR intervention is no longer indicated at this time. Recommend: 1) STRICT NPO (oral cares only) 2) consider alternative method(s) of nutrition/hydration/medication vs hospice/comfort measures, as appropriate 3) discharge pt from CANDY WRAPPING MACHINE OPERATOR intervention at this time. Physician may reorder if pt's CXR shows significant clearing and pt's respiratory status improves markedly, as appropriate. G-codes: [id number] [facility] NOMS level 1. PVE for d/w RN (Glen).
[2017-06-20] MEDS ORDERED: MIDAZOLAM 2 MG/2 ML VIAL ONE (11:47)
[2017-06-20] MEDS ORDERED: fentaNYL 0.05 MG/ML VIAL ONE (11:47)
[2017-06-20 12:00] VITALS: BP 120/60
[2017-06-20] MEDS ORDERED: PROPOFOL 200 MG/20 ML VIAL IV ONE (12:00)
[2017-06-20] MEDS ORDERED: SUCCINYLCHOLINE CHLORIDE 200 MG/10 ML VIAL IVP ONE (12:00)
[2017-06-20] MEDS ORDERED: SEVOFLURANE 250 ML BTL INH ONE (12:00)
--- NOTE | 2017-06-20 12:28 | NUR ---
PATIENT LEFT THE UNIT FOR EGD PEG PLACEMENT AND BRONCHOSCOPY PROCEDURE. PATIENT LEFT WITH FULL OXYGEN TANK. PATIENT LEFT IN STABLE CONDITION.
--- NOTE | 2017-06-20 12:43 | NUR ---
FAXED CONCURRENT REVIEW TO [facility] [phone] PHONE CATERINA [phone] RECEIVED ORDER FOR DC PLANNING TO SNF. FAXED INFORMATION TO [facility] [phone] PHONE [phone]
[2017-06-20] MEDS ORDERED: LACTATED RINGERS 1,000 ML IV SCH (12:48)
[2017-06-20] MEDS ORDERED: ONDANSETRON 4 MG/2 ML VIAL IVP PRN (12:50)
[2017-06-20] MEDS: CHLORHEXADINE GLUC 2% CLOTH TP SCH (13:00)
[2017-06-20] MEDS: THERAHONEY GEL 42.5 GM TP SCH (13:00)
--- NOTE | 2017-06-20 13:37 | NUR ---
PATIENT BACK FROM PROCEDURE. PROCEDURE SUCCESSFUL. PATIENT IN STABLE CONDITION. RECEIVED REPORT FROM OR NURSE. VITAL SIGNS WITHIN NORMAL LIMITS AT THIS TIME.
[2017-06-20] MEDS ORDERED: KCL 20 MEQ/WATER INJ PREMIX 200 ML IV SCH (14:00)
--- NOTE | 2017-06-20 14:19 | NUR ---
BLENDING MACHINE OPERATOR CHERYL FROM [facility] CAME AND SAW PATIENT. BLENDING MACHINE OPERATOR IS UPDATED ON PATIENT'S CONDITION.
--- NOTE | 2017-06-20 14:45 | NUR ---
SNF PLANNING. CHERYL FROM [facility] SAW PATIENT. IS STILL EVALUATING IF THEY CAN TAKE THE PATIENT. CALLED [facility] AND SPOKE WITH MICHEL. NO MALE ISOLATION BEDS. PER CATERINA FROM [facility]. WHEN DISCHARGED , [facility] AUTH [id number]
--- NOTE | 2017-06-20 15:13 | NUR ---
POST BRONCH PT DESATTING ON SIMPLE CHANGED TO VENTI MASK .50 RN AWARE
--- NOTE | 2017-06-20 15:39 | NUR ---
06/20/17 RD FOLLOW UP COMPLETED. PLEASE REFER TO NUTRITION ASSESSMENT UNDER CARE ACTIVITY FOR ESTIMATED NUTRITIONAL NEEDS. 1.CONTINUE NPO STATUS MEDICALLY NECESSARY 2.ONCE TF INITIATED, PLEASE CONSIDER: FIBERSOURCE HN @ 70 ML/HR. THIS WILL PROVIDE 2016 KCALS AND 91 GM PRO/DAY TO MEET 100% ESTIMATED ENERGY AND 100% ESTIMATED PROTEIN NEEDS/DAY 3.RD TO FOLLOW-UP IN 2-3 DAYS PATIENT IS HIGH RISK. RENZO BHATIA RD
[2017-06-20 16:00] VITALS: BP 131/63
[2017-06-20] MEDS: MUPIROCIN 2% OINT 22 GM TUBE TP SCH (16:00)
--- NOTE | 2017-06-20 16:00 | NUR ---
PATIENT IS RESTING IN BED. PATIENT ON 50% 15L VENTURI MASK. PATIENT 02 SATURATION IS AT 95% RIGHT NOW. PATIENT IN STABLE CONDITION.
--- NOTE | 2017-06-20 16:05 | NUR ---
FOR SNF PLANNING. CALLED [facility], NO ISOLATION BED CALLED [facility], NO ISOLATION BEDS [facility], NO ISOLATION BEDS CALLED [facility], NO ISOLATION BEDS CALLED [facility], NO ISOLATION BEDS. CALLED [facility]. SENT INQUIRY
--- NOTE | 2017-06-20 16:23 | NUR ---
SPOKE WITH THEA FROM [facility]. SHE SAID TO HAVE SOMEONE CALL HER TOMORROW, Maria Alejandra [phone] OR HER MARKETING PERSON, ANTHONY [phone]. I GAVE THEA OUR FLAT SHEET MAKER NUMBER FOR JENNY. PER CATERINA FROM [facility]. AUTH FOR SNF [id number] TRANSPORT PREMI[facility] [id number]
--- NOTE | 2017-06-20 19:12 | NUR ---
GAVE PATIENT REPORT AT BEDSIDE TO NIGHTSHIFT NURSE. PATIENT IS IN STABLE CONDITION.
--- NOTE | 2017-06-20 19:30 | NUR ---
RECEIVED FROM AM RN IN BED. MENTALLY CHALLENGED, APHASIC, PEG TUBE IN PLACE,BRANNON CATHETER IN PLACE. TOTAL CARE. IVF SITES INTACT AND NO INFILTRATION. NEEDS WILL BE ANTICIPATED AND WILL BE MET. WILL BE TURNED Q 2H. ON VENTRI MASK WITH 02 OF 15 LITERS. VITAL SIGNS WITH IN NORMAL LIMITS. DX. OF HYPOXIA.
[2017-06-20] MEDS: QUEtiapine FUMARATE 100 MG TAB PO SCH (20:38)
[2017-06-20 20:40] VITALS: BP 120/62
--- NOTE | 2017-06-20 21:38 | NUR ---
RECEIVED FROM CUSTODIAL LABORER RESULT OF VANCO TROUGH OF 17.6 . CALLED CARDINAL PHARMACIST JOHANNE AND RELAYED RESULT. PER PHARMACIST NO CHANGES TO VANCOMYCIN IVP AT PRESENT BEING GIVEN. STATED THAT IT IS ACCEPTABLE RANGE.
[2017-06-21] VITALS (7 sets, daily range): BP systolic 90–125; BP diastolic 50–79
--- NOTE | 2017-06-21 01:00 | NUR ---
PAGED RESPIRATORY THERAPIST RT PT. OT SAT GOING DOWN FROM 91 TO 87 % ON VM .
--- NOTE | 2017-06-21 01:17 | NUR ---
RT called to the floor because patient saturation was decreasing. Patient was on venti-mask 50% and sp02 was 80 and heart rate was 94. Patient placed on non-rebreather fio2 100 15lpm until saturation. RT Lory will follow up with doctor. RN aware and RT will closely monitor and RT will decrease oxygen as needed.
--- NOTE | 2017-06-21 01:37 | NUR ---
[address] LUNA AND RECEIVED ORDER TO PLACE PT ON BIPAP/ IPAP 12 EPAP 6 RR 14 FIO2 100%. WILL TITRATE FIO2 TO KEEP SATS GREATER THAN 92%. PT WAS SHORT OF BREATH AND SATS WERE LOW.
[2017-06-21] MEDS: NACL 0.9% IRR 250 ML BOTTLE IR SCH ×2 (01:53→13:00)
[2017-06-21] MEDS: HYDRAGUARD CREAM TP SCH ×2 (01:53→13:00)
--- NOTE | 2017-06-21 02:00 | NUR ---
PT. TURNED TO SIDES BY CNAS Q 2H. TOTAL CARE. PILLOW SUPPORT TO PRESSURE AREAS. TELEMETRY MONITORING . NEEDS ANTICIPATED AND WILL BE MET. APHASIC.
[2017-06-21] MEDS: ALBUTEROL SULFATE/IPRATROPIU 3 ML SOL IH SCH ×5 (04:14→20:03)
--- NOTE | 2017-06-21 04:19 | NUR ---
DECREASED FIO2 TO 50% SATS 99%
--- NOTE | 2017-06-21 04:29 | NUR ---
RESPIRATORY THERAPIST IN HERE TO GIVE BREATHING TREATMENT AND CHECK ON THE PT.S BIPAP. PT. O2 SAT AT THIS TIME 100 %. NEEDS ANTICIPATED AND MET. TOTAL CARE. TELEMETRY MONITORING.
[2017-06-21] MEDS: PIPER/TAZO 3.375GM/D5W PREMIX 50 ML IV SCH (05:26)
[2017-06-21] MEDS: DEXT 5% / NACL 0.45% 1,000 ML IV SCH ×3 (05:28→18:48)
--- NOTE | 2017-06-21 05:42 | NUR ---
AM CARE RENDERED BY CNAS. ABDOMINAL BINDER IN PLACE TO PROTECT NEWLY PLACED PEG TUBE RT PT. HAS TENDENCY TO PULL TUBINGS. NEEDS ANTICIPATED AND MET. TOTAL CARE. TELEMETRY MONITORING. NO RESTLESSNESS NOTED.
[2017-06-21 06:49] LABS: HEMOGLOBIN 9.9 g/dL (12.0-18.0); MEAN CORPUSCULAR HEMOGLOBIN 31 pg (27-31); MEAN CORPUSCULAR HGB CONC 33 g/dL (33-37); MEAN CORPUSCULAR VOLUME 92 fL (80-94); PLATELET COUNT (AUTO) 138 K/uL (140-450); RED BLOOD CELL COUNT(AUTO) 3.25 MIL/uL (4.20-6.10); RED CELL DISTRIBUTION WIDTH 16.3 % (11.6-13.7); WHITE BLOOD COUNT (AUTO) 10.6 K/uL (4.8-10.8)
[2017-06-21 06:53] LABS: ANION GAP 11.6 (8-16); CARBON DIOXIDE 32.6 mmol/L (21-32); CREATININE 1.8 mg/dL (0.7-1.3); POTASSIUM 3.2 mmol/L (3.5-5.1)
[2017-06-21 07:03] LABS: MAGNESIUM 1.8 mg/dL (1.8-2.4); PHOSPHORUS 3.2 mg/dL (2.5-4.9)
--- NOTE | 2017-06-21 07:04 | NUR ---
RECEIVED REPORT FROM NIGHTSHIFT NURSE. PATIENT WAS PLACED ON BIPAP AND OXYGEN SATURATION LEVEL IS 100% AT THIS TIME. PATIENT BREATHING IS UNLABORED AND SYMMETRICAL. PATIENT LAYING IN SUPINE POSITION WITH PILLOWS PLACED UNDER PRESSURE AREAS. PATIENT IS ASLEEP AT THIS TIME. PATIENT HAS BRANNON CATHETER IN PLACE AND IV SITES NOTED ON LEFT AC AND LEFT FOREARM AREA. BED LOWERED AND UPDATED BOARD. WILL CONTINUE TO MONITOR PATIENT.
[2017-06-21 07:23] LABS: EOSINOPHILS % (MANUAL) 1 % (0-4); LYMPHOCYTES % (MANUAL) 9 % (20-46); MONOCYTES % (MANUAL) 11 % (5-12)
[2017-06-21] MEDS: DOCUSATE SODIUM 100 MG GELCAP PO SCH ×2 (09:00→20:53)
[2017-06-21] MEDS: VANCOMYCIN 1GM/DEXT 5% PREMIX 200 ML IV SCH ×2 (09:21→20:51)
[2017-06-21] MEDS: LEVOTHYROXINE 0.05 MG TAB PO SCH (09:23)
--- NOTE | 2017-06-21 09:25 | NUR ---
BIPAP CHECK, READJUSTED MASK AND PT IS RESTING
[2017-06-21] MEDS: DIAZEPAM PFS 10 MG/2 ML SYR IVP SCH ×2 (09:43→21:00)
[2017-06-21] MEDS: clonazePAM 0.5 MG TAB PO SCH (09:55)
--- NOTE | 2017-06-21 10:56 | NUR ---
PER WANTS PT OFF BIPAP AND PLACED ON VENTI MASK AT 50%
--- NOTE | 2017-06-21 12:00 | NUR ---
PATIENT IS ASLEEP AT THIS TIME. PATIENT SHOWS NO SIGNS OF RESPIRATORY DISTRESS OR RESPIRATORY DEPRESSION. WILL CONTINUE TO MONITOR PATIENT.
[2017-06-21] MEDS: THERAHONEY GEL 42.5 GM TP SCH (13:00)
[2017-06-21] MEDS: CHLORHEXADINE GLUC 2% CLOTH TP SCH (13:00)
--- NOTE | 2017-06-21 14:00 | NUR ---
PATIENT PLACED ON VENTURI MASK 9L. PATIENT TOLERATING WELL. PATIENT O2 SATURATION AT 95% AT THIS TIME.
--- NOTE | 2017-06-21 14:30 | NUR ---
Social Service Note: Jennifer from [facility] (formerly known as [facility]) came to evaluate patient. Per Jennifer, their facility is unable to accommodate patient on 9 liters of O2. She reported their max is 6 liters. Per Etienne from [facility] / , address:[address] [place] [address] , they can accommodate patients on 9 liters of O2, their max is 10 liters. She stated they can accept patient, 21A, patient's nurse Abner made aware. SNF and Transportation authorization: Per Mandy from [facility] auth for snf [id number], transportation [facility] [id number]
[2017-06-21] MEDS: MUPIROCIN 2% OINT 22 GM TUBE TP SCH (16:00)
--- NOTE | 2017-06-21 16:00 | NUR ---
PATIENT ON 2L O2 NC. PATIENT SATURATION LEVEL IS AT 92%. WILL CONTINUE TO MONITOR PATIENT .
[2017-06-21] MEDS ORDERED: POTASSIUM CHLORIDE 20% 40 MEQ/15 ML UDC GT ONE ×2 (16:35→20:45)
[2017-06-21] MEDS ORDERED: VANC1PLA7 IV (17:36)
[2017-06-21] MEDS ORDERED: PIPE1SOL IV (17:37)
--- NOTE | 2017-06-21 17:48 | NUR ---
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 LINCOLN WARREN.
--- NOTE | 2017-06-21 19:20 | NUR ---
GAVE REPORT TO NIGHTSHIFT NURSE AT BEDSIDE. ELECTRICAL HIGH TENSION TESTER TIME FOR PATIENT IS AT 1030 BY [facility]. PATIENT IS IN STABLE CONDITION.
--- NOTE | 2017-06-21 19:22 | NUR ---
GAVE REPORT TO KYUNG RN AT [facility]. KYUNG IS AWARE OF PATIENT'S CONDITION. GAVE CALL BACK NUMBER TO [facility]. 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
--- NOTE | 2017-06-21 19:30 | NUR ---
RECEIVED PT IN STABLE CONDITION FROM AM NURSE. ON TELE MONITOR. PT IS AWAKE BUT NON VERBAL. ON O2 4L/NC. O2 SAT 93%. WITH GT FEEDING . IVF INFUSING WELL ON THE RT AC #20. CLEAR AND PATENT. BED REST. WITH BRANNON CATHETER TO GRAVITY , DRAINING WELL WITH JIMBO COLORED URINE. WITH PRESSURE ULCERS ON RT HI P WITH DRESSING, LT HIP DRY CLOSED WOUND WITH DRESSING. ALSO ON LT FOOT AND RT FOOT ,LT HAND LT KNEE ,LEEANNE. WILL TAKE PICTURE BEFORE DC TO SNF. BED ON LOW POSITION. FREQUENT ROUNDS NEEDED. SIDE RAILS UP . WILL CONTINUE TO MONITOR.
--- NOTE | 2017-06-21 20:00 | NUR ---
PICTURES TAKEN ON ALL PRESSURE ULCERS AND REDNESS AREAS.
--- NOTE | 2017-06-21 20:30 | NUR ---
DR. Grant LEWIS CAME WITH ORDERS. MADE AWARE THAT PT IS FOR DC TO SNF TONIGHT.
[2017-06-21] MEDS ORDERED: FUROSEMIDE 20 MG/2 ML VIAL IVP ONE (20:45)
[2017-06-21] MEDS: QUEtiapine FUMARATE 100 MG TAB PO SCH (20:54)
--- NOTE | 2017-06-21 21:00 | NUR ---
PT HAD A LARGE LIQUID STOOL. CLEANED PT AND KEPT DRY. DIAPER IN PLACED.
--- NOTE | 2017-06-21 22:00 | NUR ---
[facility] CAME. GAVE REPORT TO THEM. DC TO [facility] WITH SOME PERSONAL CLOTHES. WITH IV ACCESS ON THE LT FA#20, CLEAR AND PATENT. GT CLAMPED. ALSO PATENT. BRANNON CATHETER TO GRAVITY. AND O2 6L /NC O2 SAT 96%. ID BAND REMOVED. DISCHARGED IN STABLE CONDITION.
== END 2017-06-21 22:00 | DRG 710 ==
LOC: MED 08:15 → MIC 12:27 → MTU 06-17 15:30
PROVIDERS: ADMIT Hospitalist; ATTEND Hospitalist
PROC: 0W993ZZ Drainage of Right Pleural Cavity, Percutaneous Approach (ICD-10-PCS; 2017-06-16)
PROC: 0DJ08ZZ Inspection of Upper Intestinal Tract, Via Natural or Artificial Opening Endoscopic (ICD-10-PCS; 2017-06-19)
PROC: 0DH63UZ Insertion of Feeding Device into Stomach, Percutaneous Approach (ICD-10-PCS; 2017-06-20)
PROC: 0B928ZZ Drainage of Carina, Via Natural or Artificial Opening Endoscopic (ICD-10-PCS; principal; 2017-06-20 09:50)
PROC: 5A09357 Assistance with Respiratory Ventilation, Less than 24 Consecutive Hours, Continuous Positive Airway Pressure (ICD-10-PCS; 2017-06-21)
DX: A41.9 Sepsis, unspecified organism (principal); J96.01 Acute respiratory failure with hypoxia; J69.0 Pneumonitis due to inhalation of food and vomit; J15.6 Pneumonia due to other Gram-negative bacteria; J90 Pleural effusion, not elsewhere classified; D69.6 Thrombocytopenia, unspecified; N17.9 Acute kidney failure, unspecified; E88.09 Other disorders of plasma-protein metabolism, not elsewhere classified; E87.0 Hyperosmolality and hypernatremia; R65.20 Severe sepsis without septic shock; Z68.25 Body mass index [BMI] 25.0-25.9, adult; N39.0 Urinary tract infection, site not specified; F25.9 Schizoaffective disorder, unspecified; E03.9 Hypothyroidism, unspecified; D64.9 Anemia, unspecified; E46 Unspecified protein-calorie malnutrition; E87.6 Hypokalemia; G40.909 Epilepsy, unspecified, not intractable, without status epilepticus; J98.11 Atelectasis; K29.70 Gastritis, unspecified, without bleeding; K44.9 Diaphragmatic hernia without obstruction or gangrene; Y95 Nosocomial condition; Z53.29 Procedure and treatment not carried out because of patient's decision for other reasons
CPT/HCPCS: 36415; 36600; 51702; 71045; 71250; 76942; 80048; 80053; 80202; 81001; 82140; 82550; 82553; 82803; 82948; 83605; 83615; 83625; 83735; 83874; 83880; 84100; 84443; 84478; 84484; 85025; 85379; 85384; 85610; 85730; 87040; 87070; 87081; 87086; 87116; 87186; 87190; 87205; 87206; 87804; 92526; 92610; 94640; 94660; 94667; 96365; 96367; 96368; 97799; 99285; J0330; J1200; J1940; J1956; J2001; J2250; J2543; J2704; J3010; J3360; J3370; J3475; J3480; J7030; J7060; J7620; Q0092